=== PATIENT | male | born 1970 | race Caucasian/White ===

== ENCOUNTER 2022-04-17 09:46 | Emergency (ER) | payer MEDICARE, MEDICAID ==
[~2022-04-17] VITALS: Ht 170.2 cm; Wt 109.1 kg
[~2022-04-17 09:46] MED LIST: CYCL-1 PO
[2022-04-17 10:19] VITALS: BP 166/110
[2022-04-17] MEDS ORDERED: ONDA4TAB12 PO (11:21)
[2022-04-17] MEDS ORDERED: THIA50TA10 PO (11:21)
[2022-04-17] MEDS ORDERED: MULT-1074 PO (11:21)
[2022-04-17] MEDS ORDERED: ATI1T PO (11:21)
== END 2022-04-17 11:42 | disposition home or self-care (01) ==
LOC: ER 09:46
DX: F10.129 Alcohol abuse with intoxication, unspecified (principal); Z00.8 Encounter for other general examination; G89.29 Other chronic pain; M54.9 Dorsalgia, unspecified; Z91.018 Allergy to other foods; Z79.899 Other long term (current) drug therapy; Z88.6 Allergy status to analgesic agent; Y90.9 Presence of alcohol in blood, level not specified
CPT/HCPCS: 99283

== ENCOUNTER 2022-06-11 10:16 | Emergency (ER) | payer MEDICARE, MEDICAID ==
[~2022-06-11] VITALS: Ht 170.2 cm; Wt 104.5 kg
[~2022-06-11 10:16] MED LIST changes: +ATI1T PO; +MULT-1074 PO; +ONDA4TAB12 PO; +THIA50TA10 PO
[2022-06-11 10:51] VITALS: BP 158/96
[2022-06-11] MEDS ORDERED: GABA-530 PO (13:53)
[2022-06-11] MEDS ORDERED: ONDA4TAB12 PO (13:53)
[2022-06-11] MEDS ORDERED: LORA-269 PO (13:53)
== END 2022-06-11 14:03 | disposition home or self-care (01) ==
LOC: ER 10:17
DX: F10.239 Alcohol dependence with withdrawal, unspecified (principal); G89.29 Other chronic pain; Z98.890 Other specified postprocedural states; Z91.018 Allergy to other foods; Z88.8 Allergy status to other drugs, medicaments and biological substances; Z79.899 Other long term (current) drug therapy; Y90.9 Presence of alcohol in blood, level not specified
CPT/HCPCS: 99283

== ENCOUNTER 2022-08-12 09:41 | Emergency (ER) | payer MEDICARE, MEDICAID ==
[~2022-08-12] VITALS: Ht 172.7 cm; Wt 109.1 kg
[~2022-08-12 09:41] MED LIST changes: +GABA-530 PO; +LORA-269 PO
[2022-08-12 09:48] VITALS: BP 147/89
[2022-08-12] MEDS ORDERED: ibuprofen tablet 400 MG TABLET PO ONE (11:00)
== END 2022-08-12 11:30 | disposition home or self-care (01) ==
LOC: ER 09:42
DX: M25.551 Pain in right hip (principal); G89.29 Other chronic pain; M54.9 Dorsalgia, unspecified; Z87.81 Personal history of (healed) traumatic fracture; Z91.010 Allergy to peanuts; Z88.6 Allergy status to analgesic agent; Z79.899 Other long term (current) drug therapy; Z79.1 Long term (current) use of non-steroidal anti-inflammatories (NSAID); Y93.89 Activity, other specified; Y92.89 Other specified places as the place of occurrence of the external cause; Y99.8 Other external cause status
CPT/HCPCS: 73502; 99283

== ENCOUNTER 2022-11-27 09:27 | Emergency (ER) | payer MEDICARE, MEDICAID ==
[~2022-11-27] VITALS: Ht 172.7 cm; Wt 103.4 kg
[2022-11-27 09:40] VITALS: BP 164/96
--- NOTE | 2022-11-27 09:40 | NUR ---
LUIS FELIPE IN TRIAGE FOR MED SCREENING
[2022-11-27] MEDS ORDERED: GABA300C PO (09:50)
[2022-11-27] MEDS ORDERED: LORA-269 PO (09:50)
[2022-11-27] MEDS ORDERED: ONDA4TAB12 PO (09:50)
== END 2022-11-27 10:21 | disposition home or self-care (01) ==
LOC: ER 09:27
DX: F10.10 Alcohol abuse, uncomplicated (principal); I10 Essential (primary) hypertension; J44.9 Chronic obstructive pulmonary disease, unspecified; G89.29 Other chronic pain; F17.200 Nicotine dependence, unspecified, uncomplicated; F15.10 Other stimulant abuse, uncomplicated; Z88.6 Allergy status to analgesic agent; Z79.899 Other long term (current) drug therapy; Z88.8 Allergy status to other drugs, medicaments and biological substances; Y90.9 Presence of alcohol in blood, level not specified
CPT/HCPCS: 99283

== ENCOUNTER 2023-10-06 10:46 | Emergency (ER) | payer MEDICARE, MEDICAID ==
[~2023-10-06] VITALS: Ht 172.7 cm; Wt 97.6 kg
[~2023-10-06 10:46] MED LIST changes: +CHLO25CA10 PO; +GABA300C PO; +ONDA8TAB13 PO
[2023-10-06 11:17] VITALS: BP 142/91
[2023-10-06] MEDS: chlordiazePOXIDE 25mg capsule PO ONE (13:13)
[2023-10-06] MEDS ORDERED: CHLO25CA10 PO (14:13)
[2023-10-06 14:25] VITALS: PULSE 75; RESP 15; TEMP 97.7; O2SAT 98
== END 2023-10-06 14:27 | disposition home or self-care (01) ==
LOC: ER 10:47
DX: F10.239 Alcohol dependence with withdrawal, unspecified (principal); Z88.8 Allergy status to other drugs, medicaments and biological substances; Z91.018 Allergy to other foods; I10 Essential (primary) hypertension; J44.9 Chronic obstructive pulmonary disease, unspecified; G89.29 Other chronic pain; M54.9 Dorsalgia, unspecified; F15.90 Other stimulant use, unspecified, uncomplicated
CPT/HCPCS: 99283

== ENCOUNTER 2023-10-21 12:43 | Outpatient (CLI) | payer MEDICARE, MEDICAID | END 2023-10-21 23:59 | disposition home or self-care (01) | LOC: RAD 12:43 | PROVIDERS: ATTEND Physician Assistant | DX: I44.4 Left anterior fascicular block (principal); F11.20 Opioid dependence, uncomplicated; R94.31 Abnormal electrocardiogram [ECG] [EKG] | CPT/HCPCS: 93005 ==

== ENCOUNTER 2024-03-10 04:27 | Inpatient (IN) | payer MEDICARE, MEDICAID ==
[~2024-03-10] VITALS: Ht 170.2 cm; Wt 102.3 kg
[~2024-03-10 04:27] MED LIST changes: +ONDA-243 PO; +ONDA-245 PO; -ONDA4TAB12 PO; -ONDA8TAB13 PO
[2024-03-10] MEDS: LORazepam 2 mg/ml vial IV ONE (04:58)
[2024-03-10 05:18] LABS: BASOPHILS % (AUTO) 0.3 % (0-1); EOSINOPHILS % (AUTO) 0.5 % (0-6); HEMATOCRIT 39.6 % (42.0-52.0); HEMOGLOBIN 13.2 g/dl (14.0-17.9); LYMPHOCYTES # (AUTO) 0.8 X10'3 (1.1-4.8); LYMPHOCYTES % (AUTO) 12.3 % (21-51); MEAN CORPUSCULAR HEMOGLOBIN 30.4 PG (27.0-31.0); MEAN CORPUSCULAR HGB CONC 33.4 g/dL (33.0-36.5); MEAN PLATELET VOLUME 7.5 FL (7.4-10.4); MONOCYTES # (AUTO) 0.4 X10'3 (0-0.9); MONOCYTES % (AUTO) 6.6 % (2-12); NEUTROPHILS # (AUTO) 5.2 X10'3 (1.8-7.7); NEUTROPHILS % (AUTO) 80.3 % (42-75); PLATELET COUNT 130 X10'3 (140-440); RED BLOOD COUNT 4.35 X10'6 (4.70-6.10); RED CELL DISTRIBUTION WIDTH 14.2 % (11.5-14.5); WHITE BLOOD COUNT 6.5 X10'3 (4.5-11.0)
[2024-03-10 05:28] LABS: ALANINE AMINOTRANSFERASE 87 U/L (12-78); ALBUMIN 2.7 G/DL (3.4-5.0); ALBUMIN/GLOBULIN RATIO 0.7 (1.1-1.5); ALKALINE PHOSPHATASE 438 IU/L (46-116); ANION GAP 9 (8-16); ASPARTATE AMINO TRANSFERASE 102 U/L (10-37); BILIRUBIN,TOTAL 0.6 MG/DL (0.1-1.0); BLOOD UREA NITROGEN 8 MG/DL (7-18); BUN/CREATININE RATIO 15.1 (10.0-20.0); CALCIUM 7.9 MG/DL (8.5-10.1); CHLORIDE 99 MMOL/L (99-107); CREATININE 0.53 MG/DL (0.60-1.10); GLUCOSE 93 MG/DL (70-104); POTASSIUM 3.2 MMOL/L (3.5-5.1); SODIUM 139 MMOL/L (135-145); TOTAL CARBON DIOXIDE 31.4 MMOL/L (24-32); TOTAL PROTEIN 6.5 G/DL (6.4-8.2); eCRCL 152 ML/MIN; eGFR > 90 ML/MIN
[2024-03-10 05:36] LABS: PRO BRAIN NATRIURETIC PEPTIDE 400 PG/ML (0-125)
[2024-03-10] MEDS ORDERED: LORazepam 2 mg/ml vial IV ONE (06:05)
[2024-03-10 06:07] LABS: ETHANOL 44 MG/DL (<10)
[2024-03-10] MEDS: normal saline 1000ml 1,000 ML IV ONE (06:09)
[2024-03-10] MEDS ORDERED: METHADONE HCL 10MG/1 ML 1mL ORAL SYRINGE PO ONE (06:10)
[2024-03-10 06:42] LABS: MAGNESIUM 1.8 MG/DL (1.5-2.4)
[2024-03-10] MEDS: methadone 5mg tablet PO ONE (06:47)
[2024-03-10] MEDS: LORazepam 1 MG tablet PO ONE (08:50)
[2024-03-10] MEDS ORDERED: METH-603 PO (09:15)
[2024-03-10] MEDS ORDERED: potassium Cl 40MEQ/1/2NS 520ml 520 ML IV PRN (09:45)
[2024-03-10] MEDS ORDERED: magnesium sulf-water 4G/100mL 100 ML IV PRN (09:45)
[2024-03-10] MEDS ORDERED: HYDROcodone/acetaminophen 5mg/325mg tablet PO PRN (09:45)
[2024-03-10] MEDS ORDERED: haloperidol 5mg tablet PO PRN (09:45)
[2024-03-10] MEDS ORDERED: HYDROcodone/acetaminophen 10/325mg tab PO PRN (09:45)
[2024-03-10] MEDS ORDERED: magnesium sulf-water 2g/50mL 50 ML IV PRN (09:45)
[2024-03-10] MEDS ORDERED: acetaminophen 325mg tablet PO PRN (09:45)
[2024-03-10] MEDS ORDERED: ondansetron/PF 4mg/2ml inj IV PRN (09:45)
[2024-03-10] MEDS ORDERED: magnesium hydroxide 30ml (MOM) UD suspension PO PRN (09:45)
[2024-03-10] MEDS ORDERED: potassium Cl 20 mEq SR tablet PO PRN (09:45)
[2024-03-10] MEDS ORDERED: mag hydrox/Alum hydrox/simeth 30ml oral suspension PO PRN (09:45)
[2024-03-10 09:48] LABS: URINE AMPHETAMINE SCREEN NEGATIVE (Neg); URINE BARBITUATE SCREEN NEGATIVE (Neg); URINE BENZODIAZEPINES SCREEN NEGATIVE (Neg); URINE CANNABINOID SCREEN NEGATIVE (Neg); URINE COCAINE SCREEN NEGATIVE (Neg); URINE METHADONE SCREEN POSITIVE (Neg); URINE OPIATE SCREEN NEGATIVE (Neg); URINE PHENCYCLIDINE SCREEN NEGATIVE (Neg)
[2024-03-10] MEDS: folic acid 1mg tablet PO SCH (10:19)
[2024-03-10] MEDS: normal saline 1000ml 1,000 ML IV SCH ×2 (10:40→20:56)
[2024-03-10] MEDS: thiamine 100mg/ml 2ml inj. IV SCH (12:59)
[2024-03-10] MEDS ORDERED: hydrALAZINE 20mg/ml inj. IV PRN (14:55)
[2024-03-10] MEDS ORDERED: ipratropium/albuterol 3ml nebule NEB PRN (15:05)
[2024-03-10] MEDS: PERFLUTREN PROTEIN-A MICROSPHR (Optison) 0.22 MG/ML 3ML VIAL IV ONE (15:07)
[2024-03-10 16:32] VITALS: PULSE 74; RESP 18; O2SAT 96
[2024-03-10] MEDS: LORazepam 2 mg/ml vial IV PRN (18:40)
[2024-03-10 19:54] VITALS: PULSE 77; RESP 18; O2SAT 95
[2024-03-10] MEDS: docusate sod 100mg capsule PO SCH (20:00)
[2024-03-10 20:16] LABS: ALANINE AMINOTRANSFERASE 69 U/L (12-78); ALBUMIN 2.4 G/DL (3.4-5.0); ALBUMIN/GLOBULIN RATIO 0.6 (1.1-1.5); ALKALINE PHOSPHATASE 391 IU/L (46-116); ANION GAP 4 (8-16); ASPARTATE AMINO TRANSFERASE 60 U/L (10-37); BILIRUBIN,TOTAL 0.7 MG/DL (0.1-1.0); BLOOD UREA NITROGEN 8 MG/DL (7-18); BUN/CREATININE RATIO 16.3 (10.0-20.0); CALCIUM 7.8 MG/DL (8.5-10.1); CHLORIDE 102 MMOL/L (99-107); CREATININE 0.49 MG/DL (0.60-1.10); GLUCOSE 96 MG/DL (70-104); POTASSIUM 3.4 MMOL/L (3.5-5.1); SODIUM 138 MMOL/L (135-145); TOTAL CARBON DIOXIDE 32.2 MMOL/L (24-32); TOTAL PROTEIN 6.2 G/DL (6.4-8.2); eCRCL 165 ML/MIN; eGFR > 90 ML/MIN
[2024-03-10] MEDS: potassium Cl 20 mEq SR tablet PO PRN (20:56)
[2024-03-10] MEDS: heparin, porcine 5000 units/ml vial SQ SCH (20:58)
[2024-03-10] MEDS: K and/or MAG REPLACEMENT MC SCH (20:58)
[2024-03-10] MEDS: dextrose 50%-water 50ml dispensing syringe IV ONE ×2 (21:31)
[2024-03-11] VITALS (8 sets, daily range): BP systolic 121–155; BP diastolic 82–91; PULSE 59–99; RESP 15–20; TEMP 97.2–98.7; O2SAT 92–98
[2024-03-11] MEDS: dextrose 5%-normal saline 1,000 ML IV SCH (01:43)
[2024-03-11 06:35] LABS: BASOPHILS % (AUTO) 0.4 % (0-1); EOSINOPHILS # (AUTO) 0.1 X10'3 (0-0.9); EOSINOPHILS % (AUTO) 1.3 % (0-6); HEMATOCRIT 35.3 % (42.0-52.0); HEMOGLOBIN 11.7 g/dl (14.0-17.9); LYMPHOCYTES # (AUTO) 0.9 X10'3 (1.1-4.8); MEAN CORPUSCULAR HEMOGLOBIN 30.8 PG (27.0-31.0); MEAN CORPUSCULAR HGB CONC 33.2 g/dL (33.0-36.5); MEAN CORPUSCULAR VOLUME 92.8 FL (78-98); MEAN PLATELET VOLUME 7.7 FL (7.4-10.4); MONOCYTES # (AUTO) 0.5 X10'3 (0-0.9); MONOCYTES % (AUTO) 8.3 % (2-12); NEUTROPHILS # (AUTO) 4.1 X10'3 (1.8-7.7); PLATELET COUNT 110 X10'3 (140-440); RED BLOOD COUNT 3.81 X10'6 (4.70-6.10); RED CELL DISTRIBUTION WIDTH 13.9 % (11.5-14.5); WHITE BLOOD COUNT 5.6 X10'3 (4.5-11.0)
[2024-03-11 06:53] LABS: ALANINE AMINOTRANSFERASE 59 U/L (12-78); ALBUMIN 2.1 G/DL (3.4-5.0); ALBUMIN/GLOBULIN RATIO 0.6 (1.1-1.5); ALKALINE PHOSPHATASE 338 IU/L (46-116); ANION GAP 3 (8-16); ASPARTATE AMINO TRANSFERASE 50 U/L (10-37); BILIRUBIN,TOTAL 0.6 MG/DL (0.1-1.0); BLOOD UREA NITROGEN 8 MG/DL (7-18); BUN/CREATININE RATIO 15.7 (10.0-20.0); CALCIUM 7.7 MG/DL (8.5-10.1); CHLORIDE 105 MMOL/L (99-107); CREATININE 0.51 MG/DL (0.60-1.10); GLUCOSE 152 MG/DL (70-104); LIPASE 17 U/L (16-77); POTASSIUM 3.4 MMOL/L (3.5-5.1); SODIUM 139 MMOL/L (135-145); TOTAL CARBON DIOXIDE 30.9 MMOL/L (24-32); TOTAL PROTEIN 5.4 G/DL (6.4-8.2); eCRCL 158 ML/MIN; eGFR > 90 ML/MIN
[2024-03-11 07:15] LABS: PROTHROMBIN TIME 10.2 SECONDS (9.0-12.0)
[2024-03-11] MEDS: multivitamins, therapeutics tablet PO SCH (07:47)
[2024-03-11] MEDS: normal saline 1000ml 1,000 ML IV SCH (09:05)
[2024-03-11] MEDS: methadone 10mg tablet PO SCH (15:18)
[2024-03-12] MEDS ORDERED: LORazepam 2 mg/ml vial IV PRN (09:45)
[2024-03-14] MEDS ORDERED: LORazepam 2 mg/ml vial IV PRN (09:45)
== END 2024-03-11 21:10 | disposition left against medical advice (07) | DRG 641 ==
LOC: ER 04:27 → ED HOLD 09:53 → PCU 3S 03-11 00:56
PROVIDERS: ADMIT Nurse Practitioner Family; ATTEND Nurse Practitioner Family
DX: E87.6 Hypokalemia (principal); I69.351 Hemiplegia and hemiparesis following cerebral infarction affecting right dominant side; F10.239 Alcohol dependence with withdrawal, unspecified; J44.9 Chronic obstructive pulmonary disease, unspecified; I10 Essential (primary) hypertension; F41.9 Anxiety disorder, unspecified; Z53.21 Procedure and treatment not carried out due to patient leaving prior to being seen by health care provider; F19.10 Other psychoactive substance abuse, uncomplicated; E88.09 Other disorders of plasma-protein metabolism, not elsewhere classified; D64.9 Anemia, unspecified; F15.90 Other stimulant use, unspecified, uncomplicated; G89.29 Other chronic pain; M54.9 Dorsalgia, unspecified; Z88.5 Allergy status to narcotic agent; Z88.8 Allergy status to other drugs, medicaments and biological substances; Z91.018 Allergy to other foods; Z79.899 Other long term (current) drug therapy
CPT/HCPCS: 36415; 71045; 80053; 80305; 80320; 82948; 83690; 83735; 83880; 84484; 85025; 85610; 87081; 93005; 93306; 94760; 96374; 99285; A4620; A6258; G0378; J1644; J2060; J3411; J3490; J7030; J7042; J7070; J7121

== ENCOUNTER 2024-03-22 12:50 | Emergency (ER) | payer MEDICARE, MEDICAID ==
[~2024-03-22] VITALS: Ht 170.2 cm; Wt 96.4 kg
[~2024-03-22 12:50] MED LIST changes: +METH-603 PO
[2024-03-22 13:04] VITALS: BP 136/69; PULSE 91; RESP 18; TEMP 97.3; O2SAT 98
== END 2024-03-22 14:48 | disposition home or self-care (01) ==
LOC: ER 12:51
DX: F10.90 Alcohol use, unspecified, uncomplicated (principal); I10 Essential (primary) hypertension; J44.9 Chronic obstructive pulmonary disease, unspecified; G89.29 Other chronic pain; F15.90 Other stimulant use, unspecified, uncomplicated; Z88.8 Allergy status to other drugs, medicaments and biological substances; Z91.018 Allergy to other foods; Z79.899 Other long term (current) drug therapy
CPT/HCPCS: 99281; 99282

== ENCOUNTER 2024-06-22 10:14 | Emergency (ER) | payer MEDICARE, MEDICAID ==
[~2024-06-22] VITALS: Ht 170.2 cm; Wt 92.1 kg
[~2024-06-22 10:14] MED LIST changes: -ATI1T PO; -CHLO25CA10 PO; -CYCL-1 PO; +FOLI1TAB27 PO; -GABA-530 PO; -GABA300C PO; -LORA-269 PO; -METH-603 PO; -MULT-1074 PO; -ONDA-243 PO; -ONDA-245 PO; -THIA50TA10 PO; +thiamine tablet PO
[2024-06-22 10:49] VITALS: BP 133/88; PULSE 93; RESP 18; TEMP 97.8; O2SAT 98
[2024-06-22] MEDS ORDERED: FOLI0.4T6 PO (12:30)
[2024-06-22] MEDS ORDERED: CHLO25CA10 PO (12:30)
[2024-06-22] MEDS ORDERED: THIA50TA10 PO (12:30)
== END 2024-06-22 12:43 | disposition home or self-care (01) ==
LOC: ER 10:15
DX: F10.129 Alcohol abuse with intoxication, unspecified (principal); I10 Essential (primary) hypertension; J44.9 Chronic obstructive pulmonary disease, unspecified; G89.29 Other chronic pain; M54.9 Dorsalgia, unspecified; F15.90 Other stimulant use, unspecified, uncomplicated; Z88.8 Allergy status to other drugs, medicaments and biological substances; Z91.018 Allergy to other foods; Z79.899 Other long term (current) drug therapy; Z98.890 Other specified postprocedural states
CPT/HCPCS: 99283

== ENCOUNTER 2024-09-17 17:12 | Emergency (ER) | payer MEDICARE, MEDICAID ==
[~2024-09-17] VITALS: Ht 170.2 cm; Wt 83.6 kg
[~2024-09-17 17:12] MED LIST changes: +CHLO25CA10 PO; +THIA50TA10 PO
--- NOTE | 2024-09-17 17:22 | Physician Documentation ---
History of Present Illness ~ Chief Complaint: Overdose Stated Complaint: OD Time Seen by MD: 17:15 Primary Medical Doctor: DR. MEMBRENO HPI 54-year-old male presents via EMS for what was initially a suspected seizure however upon arrival patient was obtunded EMS administered intranasally two 1 mg doses of Narcan with a positive effect. Who presents to the ED alert oriented and ambulatory Day of Ingestion: Sep 17, 2024 Medication Reconciliation Allergies: Coded Allergies: ketorolac tromethamine (Unverified Allergy, Mild, HEADACHE, 07/12/24) pineapple (Unverified Allergy, Mild, HEADACHE, 07/12/24) Scheduled Folic Acid* (Folic Acid*), 1 MG PO DAILY Thiamine HCl (Vitamin B-1), 2 TAB PO DAILY [thiamine tablet], 200 MG PO DAILY Scheduled PRN Chlordiazepoxide Hcl (Librium), 2 CAP PO Q4H PRN for anxiety Chlordiazepoxide Hcl (Librium), 25 MG PO BID PRN for alcohol withdrawal Past Medical History Past Medical History: Hypertension, COPD, Chronic Back Pain, Extremity Fracture Past Surgical History: orthopedic surgeries Patient History: FH: alcoholism Maternal Grandfather FH: congestive heart failure FATHER Paternal Grandmother Alcohol Use: Alcoholic Drug Use: methamphetamine Lives In: Home Occupation: employed Review of Systems All Other Systems at this time: Reviewed and Negative ROS As stated above in the HPI, otherwise all systems are reviewed and negative. Physical Exam Physical Exam General: Alert, no apparent distress. HEENT: PERRL, EOMI, no injection, moist mucous membranes. Respiratory: Lungs clear, no respiratory distress. Chest: No accessory muscle use. Cardiovascular: Regular rate and rhythm, no murmurs. Neurologic: Oriented x4. Psychiatric: Normal mood and affect. Skin: Normal color, warm and dry. No edema, no ecchymosis. Progress Results/Orders Results/Orders Orders - ASHISH ARTEAGA [employer] Monitor (09/17/24 17:23) Saline Lock (09/17/24 17:23) Oxygen (09/17/24 17:23) Completed Orders - ASHISH ARTEAGA [employer] Cbc/Diff (09/17/24 17:23) PBNP (09/17/24 17:23) Electrocardiogram (09/17/24 17:23) CMP (09/17/24 17:23) Hs Troponin I W Calculations (09/17/24 17:23) Normal Saline 1000ml (Sodium Chloride 10 (09/17/24 17:50) Naloxone 2mg/2ml Inj (Narcan 2mg/2ml Inj (09/17/24 19:27) Medications Received in ER Medications (Trade) Dose Ordered Sig/Dequan Route PRN Reason Start Time Stop Time Status Last Admin Dose Admin (sodium chloride 1000ml IV soln) 2,000 ml ONCE ONCE IVB 09/17/24 17:50 09/17/24 17:51 DC 09/17/24 18:05 2,000 ML (Narcan 2mg/2ml inj) 2 mg ONCE STAT IV 09/17/24 19:27 09/17/24 19:28 DC 09/17/24 19:38 2 MG Vital Signs 09/17/24 09/17/24 09/17/24 09/17/24 17:13 17:18 18:05 18:24 Temp 98.4 Pulse 79 59 Resp 17 17 17 B/P (MAP) 142/82 142/82 (102) Pulse Ox 99 95 99 O2 Delivery Room Air* O2 Flow Rate 0 0 0 FiO2 21 09/17/24 19:06 Pulse 54 Resp 16 B/P (MAP) 113/68 (83) Pulse Ox 93 Laboratory Tests Test 09/17/24 17:41 White Blood Count 7.1 Red Blood Count 4.18 L Hemoglobin 12.4 L Hematocrit 37.7 L Mean Corpuscular Volume 90.2 Mean Corpuscular Hemoglobin 29.6 Mean Corpuscular Hemoglobin Concent 32.8 L Red Cell Distribution Width 15.7 H Platelet Count 230 Mean Platelet Volume 7.9 Neutrophils (%) (Auto) 64.7 Lymphocytes (%) (Auto) 25.3 Monocytes (%) (Auto) 6.8 Eosinophils (%) (Auto) 2.3 Basophils (%) (Auto) 0.9 Neutrophils # (Auto) 4.6 Lymphocytes # (Auto) 1.8 Monocytes # (Auto) 0.5 Eosinophils # (Auto) 0.2 Basophils # (Auto) 0.1 CBC Comment Sodium Level 143 Potassium Level 3.9 Chloride Level 107 Carbon Dioxide Level 29.5 Anion Gap 7 L Blood Urea Nitrogen 17 Creatinine 0.98 Estimated GFR/1.73 m2 80 BUN/Creatinine Ratio 17.3 Glucose Level 56 L Calcium Level 8.5 Total Bilirubin 0.4 Aspartate Amino Transf (AST/SGOT) 22 Alanine Aminotransferase (ALT/SGPT) 21 Alkaline Phosphatase 113 Troponin I High Sensitivity 5 Pro-B-Type Natriuretic Peptide 55 Total Protein 6.4 Albumin 3.6 Globulin 2.8 Albumin/Globulin Ratio 1.3 Chemistry Comments Medical Decision Making Findings I spoke at length with the patient on what led to his presentation to the ED today. He denied using any fentanyl however he did state he used a lorazepam and methadone because he was feeling anxious. I discussed with him with a I am just going to evaluate his laboratory values and EKG for any concerning signs and then discharge as long as everything looks good. He verbalized understanding and was in agreement. ED nurse notified me that patient appeared more somnolent than when he 1st arrived. Upon inspection he did appeared to be nodding off in his bed. 2 mg of Narcan was infused with a positive effect. Minutes later, patient was found bedside because he had gotten up to go use the restroom and fallen. Behaving per his baseline. Patient also acknowledges that he requires a hip replacement and normally uses a cane Differential Dx:Considerations: Include: Alcohol abuse, Anxiety, Bipolar disorder, Conversion disorder, Delirium, Depression, Drug Overdose-Accidental, Drug Overdose-Intentional, Encephalopathy, Hallucinations, Homicidal, Liver failure, Panic disorder, Personality disorder, Renal failure, Respiratory failure, Schizophrenia, Substance abuse, Suicidal attempt, Suidical gesture, O ther Departure Disposition: 01 HOME / SELF CARE / HOMELESS Impression: Primary Impression: Poisoning by opiate or related narcotic Condition: Improved Discharge Instructions: Accidental Drug Poisoning, Adult, Overdose, Adult Referrals: NO PRIMARY CARE PROVIDER (PCP) Signature Scribe Signature: l Attestation: The note accurately reflects work and decisions made by me.Ashish Mccoy NP 09/17/24 20:03 ASHISH ARTEAGA NP Sep 17, 2024 17:22
--- NOTE | 2024-09-17 17:36 | ELECTROCARDIOGRAPH REPORT ---
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 Ben Johnson Measurements Intervals [place] Rate: 61 P: 18 [place]: 162 QRS: -70 QRSD: 105 T: 29 QT: 465 QTc: 469 Interpretive Statements Sinus rhythm Left anterior fascicular block Abnormal R-wave progression, early transition Electronically Signed On 09-20-2024 19:03:[address] Ben Johnson Please click the below link to view image of tracing.
[2024-09-17 18:01] LABS: BASOPHILS # (AUTO) 0.1 X10'3 (0-0.2); BASOPHILS % (AUTO) 0.9 % (0-1); EOSINOPHILS # (AUTO) 0.2 X10'3 (0-0.9); EOSINOPHILS % (AUTO) 2.3 % (0-6); HEMATOCRIT 37.7 % (42.0-52.0); HEMOGLOBIN 12.4 g/dl (14.0-17.9); LYMPHOCYTES # (AUTO) 1.8 X10'3 (1.1-4.8); LYMPHOCYTES % (AUTO) 25.3 % (21-51); MEAN CORPUSCULAR HEMOGLOBIN 29.6 PG (27.0-31.0); MEAN CORPUSCULAR HGB CONC 32.8 g/dL (33.0-36.5); MEAN CORPUSCULAR VOLUME 90.2 FL (78-98); MEAN PLATELET VOLUME 7.9 FL (7.4-10.4); MONOCYTES # (AUTO) 0.5 X10'3 (0-0.9); MONOCYTES % (AUTO) 6.8 % (2-12); NEUTROPHILS # (AUTO) 4.6 X10'3 (1.8-7.7); NEUTROPHILS % (AUTO) 64.7 % (42-75); PLATELET COUNT 230 X10'3 (140-440); RED BLOOD COUNT 4.18 X10'6 (4.70-6.10); RED CELL DISTRIBUTION WIDTH 15.7 % (11.5-14.5); WHITE BLOOD COUNT 7.1 X10'3 (4.5-11.0)
[2024-09-17] MEDS: normal saline 1000ML IV soln IVB ONE (18:05)
[2024-09-17 18:22] LABS: ALBUMIN 3.6 G/DL (3.4-5.0); ALBUMIN/GLOBULIN RATIO 1.3 (1.1-1.5); ANION GAP 7 (8-16); ASPARTATE AMINO TRANSFERASE 22 U/L (10-37); BILIRUBIN,TOTAL 0.4 MG/DL (0.1-1.0); BLOOD UREA NITROGEN 17 MG/DL (7-18); BUN/CREATININE RATIO 17.3 (10.0-20.0); CALCIUM 8.5 MG/DL (8.5-10.1); CHLORIDE 107 MMOL/L (99-107); CREATININE 0.98 MG/DL (0.60-1.10); GLUCOSE 56 MG/DL (70-104); POTASSIUM 3.9 MMOL/L (3.5-5.1); SODIUM 143 MMOL/L (135-145); TOTAL CARBON DIOXIDE 29.5 MMOL/L (24-32); TOTAL PROTEIN 6.4 G/DL (6.4-8.2); eCRCL 82 ML/MIN; eGFR 80 ML/MIN
[2024-09-17 18:23] LABS: ALANINE AMINOTRANSFERASE 21 U/L (12-78); ALKALINE PHOSPHATASE 113 IU/L (46-116)
[2024-09-17 18:29] LABS: PRO BRAIN NATRIURETIC PEPTIDE 55 PG/ML (0-125)
[2024-09-17] MEDS: naloxone 2mg/2ml inj IV STA (19:38)
--- NOTE | 2024-09-17 20:57 | RADIOLOGY REPORT ---
EXAM: CT CT HEAD INDICATION: fall TECHNIQUE: CT of the head without intravenous contrast. Radiation Dose Information: CT Dose: CTDI volume is 62.99 mGy. Dose-length product is 1150.67 mGy*cm The dose indicators for CT are the volume Computed Tomography (CT) Dose Index (CTDIvol) and the Dose Length Product (DLP), and are measured in units of mGy and mGy-cm, respectively. These indicators are not patient dose, but values generated from the CT scanner acquisition factors. The report includes radiation exposure data for exposures received during this examination. COMPARISON: None FINDINGS: There is no evidence of acute intracranial hemorrhage, extra-axial collection, mass effect, midline s hift, herniation or hydrocephalus. The ventricles, sulci and cisterns are age appropriate. The mohan-white differentiation is intact. Patchy periventricular and subcortical white matter hypoattenuation is nonspecific but may be related to small vessel ischemic disease. The visualized paranasal sinuses and mastoid air cells are clear. The surrounding soft tissues and osseous structures are unremarkable. IMPRESSION: 1. Acute intracranial hemorrhage 2. CT findings of territorial ischemia. 3. No CT findings of displaced skull fracture. HS:Y
[2024-09-17 23:37] VITALS: BP 104/57; PULSE 62; RESP 16; TEMP 97.8; O2SAT 99
== END 2024-09-17 23:39 | disposition home or self-care (01) ==
LOC: ER 17:13
DX: T40.601A Poisoning by unspecified narcotics, accidental (unintentional), initial encounter (principal); R51.9 Headache, unspecified; I10 Essential (primary) hypertension; J44.9 Chronic obstructive pulmonary disease, unspecified; F15.90 Other stimulant use, unspecified, uncomplicated; F10.20 Alcohol dependence, uncomplicated; Y92.89 Other specified places as the place of occurrence of the external cause; Y90.9 Presence of alcohol in blood, level not specified
CPT/HCPCS: 36415; 70450; 80053; 83880; 84484; 85025; 93005; 96361; 96374; 99285; J2310; J7030

== ENCOUNTER 2024-10-21 08:02 | Inpatient (IN) | payer MEDICARE, MEDICAID ==
[~2024-10-21] VITALS: Ht 172.7 cm; Wt 85.3 kg
--- NOTE | 2024-10-21 08:34 | Physician Documentation ---
History of Present Illness ~ Chief Complaint: Overdose Stated Complaint: OD Time Seen by MD: 08:29 Primary Medical Doctor: DR. MEMBRENO Source: patient, family Mode of Arrival: EMS HPI 54-year-old male presenting for altered mental status. [place] with significant lethargy. EMS was reportedly going to give him Narcan when he woke up and told staff he did not want any. His fiancee is at bedside who reports that he has not used drugs in 2 months" Medication Reconciliation Allergies: Coded Allergies: ketorolac tromethamine (Unverified Allergy, Mild, HEADACHE, 07/12/24) pineapple (Unverified Allergy, Mild, HEADACHE, 07/12/24) Scheduled Folic Acid* (Folic Acid*), 1 MG PO DAILY Thiamine HCl (Vitamin B-1), 2 TAB PO DAILY [thiamine tablet], 200 MG PO DAILY Scheduled PRN Chlordiazepoxide Hcl (Librium), 2 CAP PO Q4H PRN for anxiety Chlordiazepoxide Hcl (Librium), 25 MG PO BID PRN for alcohol withdrawal Past Medical History Past Medical History: Hypertension, COPD, Chronic Back Pain, Extremity Fracture Past Surgical History: orthopedic surgeries Patient History: FH: alcoholism Maternal Grandfather FH: congestive heart failure FATHER Paternal Grandmother Alcohol Use: Alcoholic Drug Use: methamphetamine Lives In: Home Occupation: employed Physical Exam Vital Signs: RN Vital Signs have been reviewed: Yes, Temperature: 98.5, Source: Oral, Heart Rate: 49, Respiratory Rate: 10, Pulse Oximetry: 95, Weight: 81.820 Progress Progress Note Reassess patient at 9:38 a.m.. Nurse has just given him Narcan he is now awake saying do not touch me rocking back and forth in position moving all extremities. He is still unable to hold a conversation and give any history but certainly his neurologic exam has responded to naloxone. Given that he is still altered he will need further evaluation. There is no way he will hold still for CT scan or lab draw so I will give him some olanzapine 9:43 a.m. POC glucose returned 60, he still has no IV in his a difficult IV stick due to body habitus and inability to hold still. He is not safe to take p.o. While waiting for IV access we will give him some glucagon. 11:26 a.m. reassessed patient he is now completely alert and up walking to the bathroom he pulled out his IV 12:30 p.m. reassessed patient he is now somnolent again his blood pressure is now low and he is bradycardic. Symptoms all consistent with methadone overdose. 12:45 p.m. patient now awake following administration of 2nd naloxone. He says that he just took his regular methadone dose this morning at the clinic. He is still slurring his speech and fatigued 1:[address] Renner who agrees with management plan and graciously accept for admission Results/Orders Reviewed/noted all lab results: Yes Results/Orders Orders - WERO CHILDS MD Ct Head (10/21/24 08:55) * Blood Glucose Assessment * ACHS (10/21/24 12:15) Chest,Single View (10/21/24 12:15) Page Hospitalist (10/21/24 12:43) Fill Out Med Reconciliation (10/21/24 12:43) Completed Orders - WERO CHILDS MD Ct Head (10/21/24 08:55) Cbc/Diff (10/21/24 08:55) BMP (10/21/24 08:55) Ethanol (10/21/24 08:55) Naloxone 2mg/2ml Inj (Narcan 2mg/2ml Inj (10/21/24 08:57) Olanzapine Im (Zyprexa I.M. Im On (10/21/24 09:40) Glucagon, Human Recombinant (Glucagen In (10/21/24 09:45) Dextrose 5%-Lactated Ringers (Dextrose (10/21/24 09:55) Drug Screen, Urine (10/21/24 10:49) Ringers Solution, Lacted (Lactated Ringe (10/21/24 12:15) Urinalysis (10/21/24 12:15) Chest,Single View (10/21/24 12:15) Naloxone 0.4 Mg/Ml Inj (Narcan 0.4mg/Ml (10/21/24 12:15) Electrocardiogram (10/21/24 ) Troponin (Single) (10/21/24 12:15) Olanzapine Im (Zyprexa I.M. Im On (10/21/24 12:20) Medications Received in ER Medications (Trade) Dose Ordered Sig/Dequan Route PRN Reason Start Time Stop Time Status Last Admin Dose Admin (Narcan 2mg/2ml inj) 2 mg ONCE STAT IV 10/21/24 08:57 10/21/24 09:03 DC 10/21/24 09:14 2 MG (ZyPREXA I.M. IM ONLY) 5 mg ONCE ONCE IM 10/21/24 09:40 10/21/24 09:42 DC 10/21/24 09:55 5 MG Dextrose/Lactated Ringer's 1,000 ml @ 500 mls/hr Q2H ONCE IV 10/21/24 09:55 10/21/24 11:54 DC 10/21/24 09:59 500 MLS/HR Lactated Ringer's 1,000 ml @ 1,000 mls/hr ONCE ONCE IV 10/21/24 12:15 10/21/24 13:14 DC 10/21/24 12:48 1,000 MLS/HR (Narcan 0.4mg/ml inj) 0.4 mg ONCE ONCE IV 10/21/24 12:15 10/21/24 12:34 DC 10/21/24 12:39 0.4 MG Vital Signs 10/21/24 10/21/24 10/21/24 10/21/24 08:14 08:26 08:42 09:18 Temp 98.5 98.5 98.5 Pulse 49 53 50 Resp 12 10 8 17 B/P (MAP) 101/53 (69) 96/54 (68) Pulse Ox 95 94 100 O2 Flow Rate 2.0 2.0 10/21/24 10/21/24 10/21/24 10/21/24 10:02 10:51 11:57 12:39 Temp 98.5 98.5 98.5 Pulse 68 58 50 46 Resp 14 14 12 8 B/P (MAP) 106/61 (76) 140/65 (90) 93/55 (68) 101/62 Pulse Ox 98 99 97 97 O2 Flow Rate 2.0 2.0 2.0 10/21/24 13:27 Pulse 38 Resp 12 B/P (MAP) 119/70 (86) Pulse Ox 97 O2 Flow Rate 2.0 Laboratory Tests Test 10/21/24 09:42 10/21/24 10:05 10/21/24 10:45 10/21/24 10:48 Glucometer 60 L White Blood Count 6.9 Red Blood Count 4.40 L Hemoglobin 12.7 L Hematocrit 39.5 L Mean Corpuscular Volume 89.7 Mean Corpuscular Hemoglobin 28.8 Mean Corpuscular Hemoglobin Concent 32.1 L Red Cell Distribution Width 15.5 H Platelet Count 217 Mean Platelet Volume 7.9 Neutrophils (%) (Auto) 59.7 Lymphocytes (%) (Auto) 32.1 Monocytes (%) (Auto) 6.0 Eosinophils (%) (Auto) 1.5 Basophils (%) (Auto) 0.7 Neutrophils # (Auto) 4.1 Lymphocytes # (Auto) 2.2 Monocytes # (Auto) 0.4 Eosinophils # (Auto) 0.1 Basophils # (Auto) 0.0 CBC Comment Sodium Level 142 Potassium Level 4.0 Chloride Level 105 Carbon Dioxide Level 32.2 H Anion Gap 5 L Blood Urea Nitrogen 13 Creatinine 0.81 Estimated GFR/1.73 m2 > 90 BUN/Creatinine Ratio 16.0 Glucose Level 67 L Calcium Level 8.7 Troponin I High Sensitivity 4 Albumin 3.6 Chemistry Comments Ethyl Alcohol Level < 10 Urine Opiates Screen Negative Urine Methadone Screen Positive Urine Fentanyl Screen Negative Urine Barbiturates Screen Negative Urine Phencyclidine Screen Negative Urine Amphetamines Screen Negative Urine Benzodiazepines Screen Negative Urine Cocaine Screen Negative Urine Cannabinoids Screen Negative Drug Screen Comment Urine Specimen Description Voided Urine Color Yellow Urine Clarity Clear Urine pH 6.0 Urine Specific [place] 1.015 Urine Protein Negative Urine Glucose (UA) Negative Urine Ketones Negative Urine Occult Blood Negative Urine Nitrite Negative Urine Bilirubin Negative Urine Urobilinogen 0.2 Urine Leukocyte Esterase Negative Volume Urine Centrifuged 10 ml Urine Comment Test 10/21/24 12:05 Glucometer 100 EKG/XRAY/CT/US/VASC/MRI EKG : Additional Comment I independently interpreted EKG time 12:23 p.m. indication altered mental status sinus bradycardia rate 49 normal axis normal intervals no ST or T-wave abnormality Medical Decision Making Additional info obtained from: old records Additional Comment CVA, drug overdose accidental, encephalopathy hypoglycemia Departure Disposition: ADMITTED INPATIENT Admitted to Inpatient Unit: to hospitalist Impression: Primary Impression: Poisoning by opiate or related narcotic Additional Impression: Metabolic encephalopathy Referrals: NO PRIMARY CARE PROVIDER (PCP) Critical Care Note Total Time (mins): 30 Critical Care Note The very real possibility of a deterioration of this patient's condition required the highest level of my preparedness for sudden, emergent intervention. I provided critical care services, which included medication orders, frequent reevaluations of the patient's condition and response to treatment, ordering and reviewing test results, and discussing the case with various consultants. Excludes time spent performing separately billable procedures. The critical care time associated with the care of the patient was 30 minutes in the management of opiate overdose with bradycardia and hypotension requiring immediate interve ntion Signature Scribe Signature: na Attestation: WERO Lerma MD October 21, 2024 08:34
[2024-10-21] MEDS: naloxone 2mg/2ml inj IV STA ×2 (09:14→14:23)
[2024-10-21] MEDS: glucagon, human recombinant 1mg kit IM ONE (09:52)
[2024-10-21] MEDS: OLANZapine **IM** 10 mg inj. IM ONE ×3 (09:55→15:43)
[2024-10-21] MEDS: dextrose 5%-lactated ringers 1,000 ML IV ONE (09:59)
[2024-10-21 10:26] LABS: BASOPHILS % (AUTO) 0.7 % (0-1); EOSINOPHILS # (AUTO) 0.1 X10'3 (0-0.9); EOSINOPHILS % (AUTO) 1.5 % (0-6); HEMATOCRIT 39.5 % (42.0-52.0); HEMOGLOBIN 12.7 g/dl (14.0-17.9); LYMPHOCYTES # (AUTO) 2.2 X10'3 (1.1-4.8); LYMPHOCYTES % (AUTO) 32.1 % (21-51); MEAN CORPUSCULAR HEMOGLOBIN 28.8 PG (27.0-31.0); MEAN CORPUSCULAR HGB CONC 32.1 g/dL (33.0-36.5); MEAN CORPUSCULAR VOLUME 89.7 FL (78-98); MEAN PLATELET VOLUME 7.9 FL (7.4-10.4); MONOCYTES # (AUTO) 0.4 X10'3 (0-0.9); NEUTROPHILS # (AUTO) 4.1 X10'3 (1.8-7.7); NEUTROPHILS % (AUTO) 59.7 % (42-75); PLATELET COUNT 217 X10'3 (140-440); RED CELL DISTRIBUTION WIDTH 15.5 % (11.5-14.5); WHITE BLOOD COUNT 6.9 X10'3 (4.5-11.0)
[2024-10-21 10:33] LABS: ALBUMIN 3.6 G/DL (3.4-5.0); ANION GAP 5 (8-16); BLOOD UREA NITROGEN 13 MG/DL (7-18); CALCIUM 8.7 MG/DL (8.5-10.1); CHLORIDE 105 MMOL/L (99-107); CREATININE 0.81 MG/DL (0.60-1.10); GLUCOSE 67 MG/DL (70-104); SODIUM 142 MMOL/L (135-145); TOTAL CARBON DIOXIDE 32.2 MMOL/L (24-32); eCRCL 103 ML/MIN; eGFR > 90 ML/MIN
--- NOTE | 2024-10-21 10:44 | RADIOLOGY REPORT ---
EXAM: CT CT HEAD HISTORY: ams COMPARISON: CT CT HEAD on DOS: 09/17/24 TECHNIQUE: Axial images were obtained and reformatted in coronal and sagittal planes. All CT scans at this medical facility are performed using dose modulation techniques as appropriate to a performed e xam including the following: Automated exposure control was utilized; adjustment of the MA and/or KV according to patient size; and use of iterative reconstruction technique. CT Dose: CTDI volume is 62 mGy. Dose-length product is 1384 mGy*cm FINDINGS: Supratentorial Region: No evidence for large acute territorial ischemia. No intracranial hemorrhage is noted. Posterior Fossa: No acute abnormality. Brainstem: Unremarkable. Sellar/Suprasellar Region: Unremarkable. Ventricles, Cisterns, Sulci: Age-appropriate. Orbits: Unremarkable. Paranasal Sinuses: Unremarkable. Mastoid Air Cells: Unremarkable. Vasculature: Intracranial arterial calcified plaque formation noted. Bones/Soft Tissues: No acute abnormality. Other: None. IMPRESSION: 1. No acute intracranial process.
[2024-10-21 10:58] LABS: ETHANOL < 10 MG/DL (<10)
[2024-10-21 11:48] LABS: URINE AMPHETAMINE SCREEN NEGATIVE (Neg); URINE BARBITUATE SCREEN NEGATIVE (Neg); URINE BENZODIAZEPINES SCREEN NEGATIVE (Neg); URINE CANNABINOID SCREEN NEGATIVE (Neg); URINE COCAINE SCREEN NEGATIVE (Neg); URINE METHADONE SCREEN POSITIVE (Neg); URINE OPIATE SCREEN NEGATIVE (Neg); URINE PHENCYCLIDINE SCREEN NEGATIVE (Neg)
--- NOTE | 2024-10-21 12:27 | ELECTROCARDIOGRAPH REPORT ---
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 Ben Johnson Measurements Intervals [place] Rate: 49 P: 35 [place]: 165 QRS: -58 QRSD: 110 T: -16 QT: 524 QTc: 474 Interpretive Statements Sinus bradycardia Left anterior fascicular block Borderline T abnormalities, inferior leads Electronically Signed On 10-23-2024 11:02:[address] Ben Johnson Please click the below link to view image of tracing.
[2024-10-21 12:31] LABS: BILIRUBIN,URINE NEGATIVE (Neg); CLARITY,URINE CLEAR (Clear); COLOR,URINE YELLOW (Yellow); GLUCOSE, URINE NEGATIVE (Neg); KETONES,URINE NEGATIVE (Neg); LEUKOCYTE ESTERASE ,URINE NEGATIVE (Neg); NITRITES, URINE NEGATIVE (Neg); OCCULT BLOOD,URINE NEGATIVE (Neg); PROTEIN,URINE NEGATIVE (Neg); UROBILINOGEN,URINE 0.2 E.U/dL (0.2-1.0)
--- NOTE | 2024-10-21 12:38 | RADIOLOGY REPORT ---
EXAM: DI CHEST,SINGLE VIEW HISTORY: symptomatic COMPARISON: DI CHEST,SINGLE VIEW on DOS: 04/14/24, DI CHEST,SINGLE VIEW on DOS: 03/10/24, CHEST,SINGL E VIEW on DOS: 09/07/22 TECHNIQUE: Portable upright AP view of the chest was performed. FINDINGS: There is central interstitial prominence. No pneumothorax, consolidative infiltrates, or pulmonary ed [place]. The heart is borderline enlarged. There is thoracic degenerative disc disease. There is bilatera l acromioclavicular hypertrophy. IMPRESSION: Central interstitial prominence may be due to reactive airways disease or mild CHF. The lungs are ot herwise clear.
[2024-10-21 12:39] LABS: UA COLLECTION TYPE VOIDED
[2024-10-21] MEDS: naloxone 0.4 mg/ml inj IV ONE (12:39)
[2024-10-21] MEDS: ringers solution, lacted 1,000 ML IV ONE (12:48)
[2024-10-21] MEDS ORDERED: ondansetron 4mg rapidly disintigrating tab PO PRN (14:05)
[2024-10-21] MEDS ORDERED: magnesium Cl slow-release 64mg tablet PO PRN ×2 (14:05→17:15)
[2024-10-21] MEDS ORDERED: acetaminophen 325mg tablet PO PRN ×3 (14:05→17:15)
[2024-10-21] MEDS ORDERED: naloxone 0.4 mg/ml inj IV PRN ×2 (14:05→17:15)
[2024-10-21] MEDS ORDERED: ondansetron/PF 4mg/2ml inj IV PRN ×2 (14:05→17:15)
[2024-10-21] MEDS ORDERED: acetaminophen 650mg rectal suppository RC PRN (14:05)
[2024-10-21] MEDS ORDERED: magnesium sulf-water 4G/100mL 100 ML IV PRN ×2 (14:05→17:15)
[2024-10-21] MEDS ORDERED: potassium Cl 40MEQ/1/2NS 520ml 520 ML IV PRN ×2 (14:05→17:15)
[2024-10-21] MEDS ORDERED: diphenhydrAMINE 25mg capsule PO PRN (14:05)
[2024-10-21] MEDS ORDERED: mag hydrox/Alum hydrox/simeth 30ml oral suspension PO PRN ×2 (14:05→17:15)
[2024-10-21] MEDS ORDERED: potassium Cl 20 mEq SR tablet PO PRN ×4 (14:05→17:15)
[2024-10-21] MEDS ORDERED: magnesium hydroxide 30ml (MOM) UD suspension PO PRN ×2 (14:05→17:15)
[2024-10-21] MEDS ORDERED: bisacodyl 10mg suppository rectal RC PRN (14:05)
[2024-10-21] MEDS ORDERED: magnesium sulf-water 2g/50mL 50 ML IV PRN ×2 (14:05→17:15)
[2024-10-21] MEDS: dextrose 5%-normal saline 1,000 ML IV SCH (14:25)
[2024-10-21 14:51] LABS: HEMOGLOBIN A1C 5.4 % (4.5-6.2)
[2024-10-21] MEDS: diazepam inj 5 MG/ML inj. IV ONE ×2 (15:15→20:31)
[2024-10-21] MEDS: LORazepam 2 mg/ml vial IV ONE (15:43)
[2024-10-21 16:56] LABS: ALANINE AMINOTRANSFERASE 19 U/L (12-78); ALBUMIN 3.3 G/DL (3.4-5.0); ALBUMIN/GLOBULIN RATIO 1.1 (1.1-1.5); ALKALINE PHOSPHATASE 106 IU/L (46-116); ANION GAP 4 (8-16); ASPARTATE AMINO TRANSFERASE 18 U/L (10-37); BILIRUBIN,TOTAL 0.6 MG/DL (0.1-1.0); BLOOD UREA NITROGEN 10 MG/DL (7-18); BUN/CREATININE RATIO 14.3 (10.0-20.0); CALCIUM 8.6 MG/DL (8.5-10.1); CHLORIDE 110 MMOL/L (99-107); GLUCOSE 104 MG/DL (70-104); SODIUM 145 MMOL/L (135-145); TOTAL CARBON DIOXIDE 30.9 MMOL/L (24-32); TOTAL PROTEIN 6.2 G/DL (6.4-8.2); eCRCL 119 ML/MIN; eGFR > 90 ML/MIN
--- NOTE | 2024-10-21 17:25 | HISTORY AND PHYSICAL-Residence ---
History & Physical Providers to CC Resident Creating Document: RODRÍGUEZ BURCIAGA ELIZABETH ~ History of Present Illness Primary Medical Doctor: DR. MEMBRENO Reason for Admit\Complaint: OD, Obtundation History of Present Illness The patient is a 54-year-old male with a longstanding history of alcohol use disorder, who goes to methadone clinic brought to via EMS with altered level of consciousness after taking an unspecified amount of methadone.. He also has a history of DT and polysubstance use, including methamphetamine and fentanyl. This is his 4th ED visit this year for similar presentations, with previous admission on April 14, 2024, and September 17, 2024, both related to substance withdrawal and altered mental status. Upon arrival today, the patient was obtunded, and responded to naloxone. Post reversal, he became acutely agitated, requiring sedation with diazepam, and Ativan. He also received Zyprexa 5 mg, given twice. Today, he responded to 2 mg of naloxone followed by 0.4 mg, indicating possible recent opiate use despite denied. Despite reporting no recent methamphetamine use (claims abstinent for 45 days) and fentanyl use one year ago, his exam findings and positive response to naloxone suggests recent opioid exposure. His U-Tox is negative, nonetheless. He also claimed that he goes to ies clinic daily for methadone, but this requires verification. Allergies: Coded Allergies: ketorolac tromethamine (Unverified Allergy, Mild, HEADACHE, 10/23/24) pineapple (Unverified Allergy, Mild, HEADACHE, 10/23/24) Home Medications Home Medications Active Librium (Chlordiazepoxide Hcl) 25 Mg Capsule 25 Mg PO BID PRN Vitamin B-1 (Thiamine HCl) 50 Mg Tablet 2 Tab PO DAILY 30 Days Librium (Chlordiazepoxide Hcl) 25 Mg Capsule 2 Cap PO Q4H PRN 3 Days [thiamine tablet] 100 MG Tablet 200 Mg PO DAILY 30 Days Folic Acid* (Folic Acid) Y Tab 1 Mg PO DAILY 30 Days Past Medical History Past Medical History CVA with no chronic residual sequelae, alcohol use disorder, polysubstance use disorder Past Surgical History Surgical History Comment ORIF right hip in 2018, lumbar spine L4-L5 S1 surgeries Family History Family History: FH: alcoholism Maternal Grandfather FH: congestive heart failure FATHER Paternal Grandmother Past Social History Social History Comment Lives with his , goes to methadone clinic daily, claim quitting methamphetamine 45 days ago and fentanyl one year ago. He also claimed abstinence from alcohol for eight years. Alcohol Use: Alcoholic Drug Use: Methamphetamine Lives In: Home Occupation: employed ROS All Other Systems: Reviewed and Negative ROS As stated above in the HPI, otherwise all systems are reviewed and negative. Exam Vitals: Vital Signs Date Time Temp Pulse Resp B/P (MAP) Pulse Ox O2 Delivery O2 Flow Rate FiO2 10/21/24 17:01 98.5 60 10 112/68 (83) 98 2.0 General Appearance: Mildly confused, mildly agitated HEENT: pinpoint pupils Neck: Trachea midline. Supple, normal ROM. No JVD, bruit, lymphadenopathy or masses, or other lesions. Respiratory: Chest wall is symmetric and without deformity. No signs of respiratory distress. Equal breath sounds bilaterally. No wheeze, rub, Rales or crackles. Cardiac: RRR, no murmur, rub or gallop. Normal S1 and S2. GI: No tenderness. Abdomen symmetric, nondistended, soft, normal bowel sounds x4 quadrant normoactive. No guarding, no rebound or rigidity. No hepatosplenomegaly. No masses, no bruit, no flank pain bilaterally. Extremities: Normal ROM, no swelling, non-tender. Distal pulses full symmetrical, no clubbing, cyanosis, edema, capillary refill less than 2 seconds. Skin: Intact, dry, warm, no rashes or petechia. Neuro: Speech is clear, alert and oriented x4. No sensory or motor deficit, DTRs normal. Cranial nerves II to XII intact. Bilateral tremors noted Psych: Normal affect, good eye contact, no apparent hallucination, normal speech. Diagnostic Data Last Recorded Lab Results: 10/21/24 1005 10/21/24 1618 Advance Care Planning Advanced Care plannin - 30 Minutes Additional Plan History of polysubstance abuse History of methamphetamine abuse Claimed taking methadone Recurrent episodes of drowsiness respiratory depression - responds well to Narcan Received repeated boluses of Narcan for recurrent respiratory depression Narcan 0.2 mg every 20 minutes as needed Perfusing well with 2 L supplemental oxygen via nasal cannula; keep oxygen saturation between 90- 94% Monitor closely for hypoventilation or need for airway intervention Continuous telemetry, monitor for arrhythmia, QTC prolongation Continue IV hydration; D5/NS 125 ml/hr Substance use navigation consult requested Alcohol use disorder Alcohol-induced psychotic disorder Severe alcohol withdrawal symptoms: CIWA-Ar Score 24 Soft restrains, sitter in place Symptom-triggered regimen for CAT - Ativan 2 mg IV as needed for CIWA-Ar >10 (parameters included in the order). - Valium 10 mg IV every 6 hrs scheduled, transitioning to every 8 hrs scheduled tomorrow & subsequently every 12 hrs the day after. - Continue symptom triggered Ativan per CIWA protocol - Zyprexa 10 mg IM adjunctive therapy for agitation - Continue thiamine and folic acid IV - oil well services supervisor consulted History of CVA No chronic residual sequelae History of degenerative joint disease Status post ORIF right hip 2018 L4-L5 surgery Pain management Tobacco use disorder Vaping - nicotine patch DVT prophylaxis: Heparin Code status: Full code Rodríguez Burciaga Internal Medicine Resident Date of Service: October 21, 2024 Billing Provider: ERIC AMADOR MD Common Visit Codes: 45979-[id number] INP/OBS CARE (HIGH) RODRÍGUEZ BURCIAGA, RES October 21, 2024 17:25 ERIC AMADOR MD Oct 26, 2024 16:43
[2024-10-21 17:30] LABS: BILIRUBIN,URINE NEGATIVE (Neg); CLARITY,URINE CLEAR (Clear); COLOR,URINE YELLOW (Yellow); GLUCOSE, URINE NEGATIVE (Neg); KETONES,URINE NEGATIVE (Neg); LEUKOCYTE ESTERASE ,URINE NEGATIVE (Neg); NITRITES, URINE NEGATIVE (Neg); OCCULT BLOOD,URINE NEGATIVE (Neg); PH,URINE 7.5 (4.8-8.0); PROTEIN,URINE NEGATIVE (Neg); UROBILINOGEN,URINE 0.2 E.U/dL (0.2-1.0)
[2024-10-21 17:33] LABS: ABG BASE EXCESS 0.7 mmol/L (-2.0-3.0); ABG OXYGEN SATURATION 89.6 % (94.0-98.0); ABG PH (T) 7.425 (7.350-7.450); ABG PO2 (T) 59.6 mmHg (83.0-108.0); ALLEN'S TEST POSITIVE; FCOHb 0.3 % (0.5-1.5); FHHb 10.3 % (0.0-5.0); FMetHb 0.3 % (0.0-1.5); FO2Hb 89.1 % (94.0-98.0); MODE ROOM AIR; TOTAL HEMOGLOBIN 12.7 G/dl (13.5-17.5)
--- NOTE | 2024-10-21 17:35 | CONSULTATION REPORT ---
Consult Providers to CC ~ History of Present Illness Reason for Admit\Complaint: Altered level of consciousness History of Present Illness 54-year-old male who presented to the emergency department via EMS with altered level of consciousness after taking an unspecified amount of methadone. The patient has been a patient of a local methadone clinic for about two years. He was also notable for hypoglycemia with a serum glucose of 60. He responded to Narcan i.e. mentation would improve and he would get agitated. He has received diazepam, olanzapine and lorazepam to control his agitation with some success. He was started on D5 LR at 125 mL/hour. He is overall become calm without any agitation. He has not required anymore dosing with Narcan. He was able to give me most of his history. Allergies: Coded Allergies: ketorolac tromethamine (Unverified Allergy, Mild, HEADACHE, 07/12/24) pineapple (Unverified Allergy, Mild, HEADACHE, 07/12/24) Home Medications Home Medications Active Librium (Chlordiazepoxide Hcl) 25 Mg Capsule 25 Mg PO BID PRN Vitamin B-1 (Thiamine HCl) 50 Mg Tablet 2 Tab PO DAILY 30 Days Librium (Chlordiazepoxide Hcl) 25 Mg Capsule 2 Cap PO Q4H PRN 3 Days [thiamine tablet] 100 MG Tablet 200 Mg PO DAILY 30 Days Folic Acid* (Folic Acid) Y Tab 1 Mg PO DAILY 30 Days Past Medical History Past Medical History Substance abuse and currently a patient of a methadone clinic, unstable angina brought on by stress and described as substernal chest heaviness brought on by stress. Past Surgical History Surgical History Comment Remarkable for right hip surgery as well as L4/L5 back surgery. Family History Family History: FH: alcoholism Maternal Grandfather FH: congestive heart failure FATHER Paternal Grandmother Past Social History Social History Comment He quit smoking years ago. He smoked for about 28 years from the age of 14 up until the age of about 42 in smoked up to about three packs of cigarettes a day. He also quit using alcohol. He is on methadone. ROS ROS A 14 point review of systems was obtained and is as in his history of present illness and past medical history. Exam Vitals: Vital Signs Date Time Temp Pulse Resp B/P (MAP) Pulse Ox O2 Delivery O2 Flow Rate FiO2 10/21/24 17:01 98.5 60 10 112/68 (83) 98 2.0 General: Awake alert and conversant. No distress. HEENT: N/C/AT, PERRLA, EOMI Neck: Neck: Supple with no jugular venous distention and no lymphadenopathy. Chest: Symmetric expansion bilaterally Cardiovascular: Bradycardia episodes, normal S1 and S2 without any S3-S4 gallop Abdomen: Nondistended with normal bowel sounds soft nontender no organomegaly Extremities: No cyanosis, no clubbing and no edema. Diagnostic Data Last Recorded Lab Results: 10/21/24 1005 10/21/24 1618 Additional Plan Suspected drug overdose with methadone responsive to intermittent narcan use. Patient more awake and able to give history now. Hypoglycemia: Corrected with D5 LR running at 125 mL/hour. Unstable angina: Recent history of intermittent substernal chest heaviness Jernigan's on by stress. Bradycardia: Could be due to the use of beta-blockers for unstable angina (unable to verify patient's outpatient medications at this moment cholesterol and this or due to drug overdose. We will admit and observe the patient in the intensive care unit overnight. Overall prognosis: Guarded Critical care time: 35 minutes. LIONEL SEGUNDO MD October 21, 2024 17:35
[2024-10-21 17:56] LABS: UA COLLECTION TYPE NON-SPECIFIED
[2024-10-21 17:57] LABS: URINE AMPHETAMINE SCREEN NEGATIVE (Neg); URINE BARBITUATE SCREEN NEGATIVE (Neg); URINE BENZODIAZEPINES SCREEN NEGATIVE (Neg); URINE CANNABINOID SCREEN NEGATIVE (Neg); URINE COCAINE SCREEN NEGATIVE (Neg); URINE METHADONE SCREEN POSITIVE (Neg); URINE OPIATE SCREEN NEGATIVE (Neg); URINE PHENCYCLIDINE SCREEN NEGATIVE (Neg)
[2024-10-21 19:25] LABS: CREATINE KINASE 282 U/L (39-308)
[2024-10-21 20:00] VITALS: RESP 12; O2SAT 97
[2024-10-21] MEDS: heparin, porcine 5000 units/ml vial SQ SCH (20:00)
[2024-10-21] MEDS ORDERED: docusate sod 100mg capsule PO SCH (20:00)
[2024-10-21] MEDS: K and/or MAG REPLACEMENT MC SCH (20:00)
[2024-10-21] MEDS: docusate sod 100mg capsule PO SCH (20:00)
[2024-10-21] MEDS ORDERED: K and/or MAG REPLACEMENT MC SCH (20:00)
[2024-10-21 20:15] VITALS: BP 113/64; PULSE 45; RESP 15; O2SAT 100
[2024-10-21 21:00] VITALS: BP 95/54; PULSE 43; RESP 10; O2SAT 98
[2024-10-21] MEDS: thiamine 100mg/ml 2ml inj. IV SCH (21:37)
[2024-10-21 22:00] VITALS: BP 104/60; PULSE 41; RESP 11; O2SAT 98
[2024-10-21 22:22] VITALS: O2SAT 99
[2024-10-21 23:00] VITALS: BP 123/68; PULSE 44; RESP 16; O2SAT 99
[2024-10-21] MEDS: diazepam inj 5 MG/ML inj. IV SCH (23:40)
[2024-10-22] VITALS (17 sets, daily range): BP systolic 89–133; BP diastolic 42–77; PULSE 41–68; RESP 8–16; TEMP 97; O2SAT 90–100
[2024-10-22] MEDS ORDERED: PRAZ1CAP5 PO (01:53)
[2024-10-22 03:41] LABS: BASOPHILS % (AUTO) 0.6 % (0-1); EOSINOPHILS # (AUTO) 0.1 X10'3 (0-0.9); EOSINOPHILS % (AUTO) 1.6 % (0-6); HEMOGLOBIN 11.8 g/dl (14.0-17.9); LYMPHOCYTES # (AUTO) 0.8 X10'3 (1.1-4.8); LYMPHOCYTES % (AUTO) 17.6 % (21-51); MEAN CORPUSCULAR HEMOGLOBIN 28.9 PG (27.0-31.0); MEAN CORPUSCULAR VOLUME 90.2 FL (78-98); MEAN PLATELET VOLUME 7.7 FL (7.4-10.4); MONOCYTES # (AUTO) 0.3 X10'3 (0-0.9); NEUTROPHILS # (AUTO) 3.5 X10'3 (1.8-7.7); NEUTROPHILS % (AUTO) 73.2 % (42-75); PLATELET COUNT 169 X10'3 (140-440); RED CELL DISTRIBUTION WIDTH 15.5 % (11.5-14.5); WHITE BLOOD COUNT 4.8 X10'3 (4.5-11.0)
[2024-10-22 03:58] LABS: ALANINE AMINOTRANSFERASE 19 U/L (12-78); ALKALINE PHOSPHATASE 101 IU/L (46-116); ANION GAP 5 (8-16); ASPARTATE AMINO TRANSFERASE 18 U/L (10-37); BILIRUBIN,TOTAL 0.5 MG/DL (0.1-1.0); BLOOD UREA NITROGEN 9 MG/DL (7-18); BUN/CREATININE RATIO 11.7 (10.0-20.0); CALCIUM 8.1 MG/DL (8.5-10.1); CHLORIDE 109 MMOL/L (99-107); CHOLESTEROL 169 MG/DL (0-200); CREATININE 0.77 MG/DL (0.60-1.10); GLUCOSE 97 MG/DL (70-104); HDL CHOLESTEROL 56 MG/DL (35-60); LDL CHOLESTEROL 94 MG/DL (50-100); PHOSPHORUS 3.7 MG/DL (2.3-4.5); SODIUM 146 MMOL/L (135-145); TOTAL CARBON DIOXIDE 31.8 MMOL/L (24-32); TOTAL PROTEIN 5.9 G/DL (6.4-8.2); TRIGLYCERIDES 83 MG/DL (20-135); eCRCL 109 ML/MIN; eGFR > 90 ML/MIN
[2024-10-22] MEDS: nicotine 21mg patch - 24 hr TD SCH (08:00)
[2024-10-22] MEDS: folic acid 1mg/0.2ml inj IV SCH (08:14)
[2024-10-22] MEDS: multivitamins, therapeutics tablet PO SCH (08:15)
[2024-10-22] MEDS ORDERED: METH10OR11 PO (09:18)
[2024-10-22] MEDS: methadone 10mg tablet PO ONE (09:42)
[2024-10-22] MEDS ORDERED: CLON-570 PO (10:38)
[2024-10-22] MEDS ORDERED: ACAM333T8 PO (10:38)
--- NOTE | 2024-10-22 11:46 | PROGRESS NOTE ---
Subjective Subjective Patient is seen today. Sitting up in chair and is a little bit tremulous though awake alert and coherent. Reason for visit: Drug overdose Reviewed: Care Plan, H&P, Labs, Previous Orders, Radiology Review of Systems Changes from previous H/P or p: No Changes Daily Progress Note Exam Vitals Vital Signs Date Time Temp Pulse Resp B/P (MAP) Pulse Ox O2 Delivery O2 Flow Rate FiO2 10/22/24 10:00 68 16 127/70 (89) 98 Room Air 10/22/24 07:00 2.0 10/21/24 22:22 28 10/21/24 20:15 97.9 Result Diagram: 10/22/24 0323 10/22/24 0323 Exam General: Awake alert and conversant. No distress. HEENT: N/C/AT, PERRLA, EOMI Neck: Neck: Supple with no jugular venous distention and no lymphadenopathy. Chest: Symmetric expansion bilaterally Cardiovascular: Bradycardia episodes, normal S1 and S2 without any S3-S4 gallop Abdomen: Nondistended with normal bowel sounds soft nontender no organomegaly Extremities: No cyanosis, no clubbing and no edema. VTE VTE Risk Score VTE Risk Score Reference Ranges: Score 0-1 = Low Risk (Aggressive mobilization; early ambulation; no VTE prophylaxis required) Score 2: Moderate Risk (Intermittent/Pneumatic Compression Device OR Lovenox/Heparin/Coumadin) Score 3-4: High Risk (Intermittent/Pneumatic Compression Device AND Lovenox/Heparin/Coumadin) Score > or = 5: Highest Risk (Intermittent/Pneumatic Compression Device AND Lovenox/Heparin/Coumadin) Assessment/Plan Plan Suspected drug overdose with methadone responsive to intermittent narcan use. Patient more awake and able to give history now. Hypoglycemia: Resolved. Corrected with D5 LR running at 125 mL/hour. Need to discontinue IV fluids. Unstable angina: Recent history of intermittent substernal chest heaviness brought on by stress. Needs Cardiology consultation. Bradycardia: Resolved. Could be due to the use of beta-blockers for unstable angina (unable to verify patient's outpatient medications at this moment cholesterol and this or due to drug overdose. Overall prognosis: Guarded Critical care time: 35 minutes. Disposition: Transferred to the floor. LIONEL SEGUNDO MD October 22, 2024 11:46
--- NOTE | 2024-10-22 18:40 | PROGRESS NOTE- Residence ---
Progress Note - Resident Providers to CC Resident Creating Document: CESAR BURCIAGA RES ~ Antibiotic Timeout Antibiotic Ordered?: No Subjective Patient was seen in ICU today. He is awake alert and more coherent. A little bit tremulous. Downgraded to PCU. Objective Vital Signs Date Time Temp Pulse Resp B/P (MAP) Pulse Ox O2 Delivery O2 Flow Rate FiO2 10/22/24 17:00 49 13 95/55 (68) 93 10/22/24 16:00 Room Air 10/22/24 07:00 2.0 10/21/24 22:22 28 10/21/24 20:15 97.9 General Appearance: Awake alert and coherent HEENT: pinpoint pupils Cardiac: RRR, no murmur, rub or gallop. Normal S1 and S2. GI: No tenderness. Abdomen symmetric, nondistended, soft, normal bowel sounds x4 quadrant normoactive. No guarding, no rebound or rigidity. No hepatosplenomegaly. No masses, no bruit, no flank pain bilaterally. Extremities: Normal ROM, no swelling, non-tender. Distal pulses full symmetrical, no clubbing, cyanosis, edema, capillary refill less than 2 seconds. Skin: Intact, dry, warm, no rashes or petechia. Neuro: Speech is clear, alert and oriented x4. No sensory or motor deficit, DTRs normal. Cranial nerves II to XII intact. Bilateral tremors noted Psych: Normal affect, good eye contact, no apparent hallucination, normal speech. Result Diagram: 10/22/24 0323 10/22/24 0323 Advance Care Planning Advanced Care plannin - 30 Minutes Assessment Assessment The patient is a 54-year-old male with a longstanding history of alcohol use disorder, who goes to methadone clinic brought to via EMS with altered level of consciousness after taking an unspecified amount of methadone.. He also has a history of DT and polysubstance use, including methamphetamine and fentanyl. This is his 4th ED visit this year for similar presentations, with previous admission on April 14, 2024, and September 17, 2024, both related to substance withdrawal and altered mental status. Upon arrival today, the patient was obtunded, and responded to naloxone. Post reversal, he became acutely agitated, requiring sedation with diazepam, and Ativan. He also received Zyprexa 5 mg, given twice. Plan Plan History of polysubstance abuse History of methamphetamine abuse Claimed taking methadone, more likely methadone overdose Recurrent episodes of drowsiness respiratory depression - responds well to Narcan Received repeated boluses of Narcan for recurrent respiratory depression Narcan 0.2 mg every 20 minutes as needed Perfusing well with 2 L supplemental oxygen via nasal cannula; keep oxygen saturation between 90- 94% Monitor closely for hypoventilation or need for airway intervention Continuous telemetry, monitor for arrhythmia, QTC prolongation Continue IV hydration; D5/NS 125 ml/hr Substance use navigation consult requested Alcohol use disorder Alcohol-induced psychotic disorder Severe alcohol withdrawal symptoms: CIWA-Ar Score 24 Soft restrains, sitter in place Symptom-triggered regimen for CAT - Ativan 2 mg IV as needed for CIWA-Ar >10 (parameters included in the order). - Valium 10 mg IV every 6 hrs scheduled, transitioning to every 8 hrs scheduled tomorrow & subsequently every 12 hrs the day after. - Continue symptom triggered Ativan per CIWA protocol - Zyprexa 10 mg IM adjunctive therapy for agitation - Continue thiamine and folic acid IV - vp celebrity services consulted History of CVA No chronic residual sequelae History of degenerative joint disease Status post ORIF right hip 2018 L4-L5 surgery Pain management Tobacco use disorder Vaping - nicotine patch DVT prophylaxis: Heparin Code status: Full code [facility] Resident Date of Service: October 22, 2024 Billing Provider: ERIC AMADOR MD Common Visit Codes: [id number] INP/OBS CARE(HIGH) CESAR BURCIAGA, RES October 22, 2024 18:40 ERIC AMADOR MD Oct 26, 2024 16:43
[2024-10-22] MEDS: OLANZapine **IM** 10 mg inj. IM SCH (20:11)
[2024-10-23 02:00] VITALS: BP 120/62; PULSE 47; RESP 14; TEMP 97.2; O2SAT 95
[2024-10-23] MEDS ORDERED: diazepam inj 5 MG/ML inj. IV SCH (08:00)
[2024-10-23] MEDS ORDERED: methadone 10mg tablet PO SCH (08:00)
--- NOTE | 2024-10-26 16:46 | DISCHARGE SUMMARY ---
Discharge Summary Providers to CC ~ Discharge Summary Admission Diagnosis: OD, Altered Mentation,hypoglycemia Hospital Course DATE OF ADMISSION: 10/21/2024 DATE OF DISCHARGE: Left against medical advice on 10/23/2024 Discharge Diagnosis\Comment: Left against medical advice on 10/23/2024 Operations\Procedures: None Consultants: [facility] Complications: Patient left AMA. Had no suicidal or homicidal ideations Condition on DC: Unstable Discharge Summary: Left against medical advice on 10/23/2024 *Problems/Diagnosis: (1) Methadone dependence Status: Acute Total Time Spent on D/C: Up to 30 Minutes Date of Service: October 23, 2024 Billing Provider: ERIC AMADOR MD Common Visit Codes: NOT BILLABLE ( Left against medical advice on 10/23/2024) ERIC AMADOR MD Oct 26, 2024 16:46
== END 2024-10-23 04:55 | disposition left against medical advice (07) | DRG 917 ==
LOC: ER 08:02 → ED HOLD 14:08 → UNDOADMIN 14:08 → ED HOLD 17:28 → CICU 2S 19:59 → PCU 3S 10-22 21:15
PROVIDERS: ADMIT Internal Medicine Critical Care Medicine; ATTEND Family Medicine
PROC: 05HB33Z Insertion of Infusion Device into Right Basilic Vein, Percutaneous Approach (ICD-10-PCS; principal; 2024-10-22)
PROC: B54MZZA Ultrasonography of Right Upper Extremity Veins, Guidance (ICD-10-PCS; 2024-10-22)
DX: T40.3X1A Poisoning by methadone, accidental (unintentional), initial encounter (principal); G93.41 Metabolic encephalopathy; F10.259 Alcohol dependence with alcohol-induced psychotic disorder, unspecified; I20.0 Unstable angina; Z53.21 Procedure and treatment not carried out due to patient leaving prior to being seen by health care provider; I11.0 Hypertensive heart disease with heart failure; E16.2 Hypoglycemia, unspecified; J44.9 Chronic obstructive pulmonary disease, unspecified; I50.9 Heart failure, unspecified; T40.691A Poisoning by other narcotics, accidental (unintentional), initial encounter; Y92.89 Other specified places as the place of occurrence of the external cause; Z88.8 Allergy status to other drugs, medicaments and biological substances; Z91.018 Allergy to other foods; Z87.891 Personal history of nicotine dependence
CPT/HCPCS: 36410; 36415; 36600; 70450; 71045; 76937; 80048; 80053; 80061; 80305; 80320; 81003; 82140; 82550; 82803; 82948; 83036; 83735; 84100; 84484; 85018; 85025; 87081; 93005; 96372; 96374; 96376; 99285; 99291; A4615; A6258; A6449; A6590; G0378; J1644; J2060; J2310; J3360; J3411; J3490; J7030; J7042; J7120; J7121

== ENCOUNTER 2024-10-23 13:28 | Emergency (ER) | payer MEDICARE, MEDICAID ==
[~2024-10-23] VITALS: Ht 172.7 cm; Wt 87.7 kg
[~2024-10-23 13:28] MED LIST changes: +ACAM333T8 PO; -CHLO25CA10 PO; +CLON-570 PO; -FOLI1TAB27 PO; +METH10OR11 PO; +PRAZ1CAP5 PO; -THIA50TA10 PO; -thiamine tablet PO
[2024-10-23 13:47] VITALS: TEMP 98.3
--- NOTE | 2024-10-23 15:14 | Physician Documentation ---
History of Present Illness ~ Chief Complaint: Shortness of Breath Stated Complaint: LOW 02 Time Seen by MD: 14:34 OK to notify your PCP?: Yes Primary Medical Doctor: DR. MEMBRENO Source: patient, family, RN/, RN notes reviewed, old records Mode of Arrival: POV Exam Limitations: no limitations HPI 54 year old male seen in bed six presents to the emergency department for complaints of overdose symptoms. Patient was admitted this morning to the ICU due to an overdosing on methadone. He was hypoxic and put on ABG when admitted and given narcan. Patient states that he had left admission against medical advice but his partner brought him back because the patient seems confused which is not normal for him. Patient has no medical complaints at this time and states he feels fine. Patient denies any other associated symptoms at this time. Patient denies any other alleviating or exacerbating factors. Medication Reconciliation Allergies: Coded Allergies: ketorolac tromethamine (Unverified Allergy, Mild, HEADACHE, 10/23/24) pineapple (Unverified Allergy, Mild, HEADACHE, 10/23/24) Scheduled Acamprosate Calcium (Acamprosate Calcium), 2 TAB PO TID, (Reported) Clonazepam (Clonazepam), 1 TAB PO HS, (Reported) Methadone Hcl (Methadone), 179 MG PO DAILY, (Reported) Prazosin Hcl (Prazosin Hcl), 1 CAP PO HS, (Reported) Discontinued Medications Chlordiazepoxide Hcl (Librium), 2 CAP PO Q4H PRN for anxiety Discontinued Reason: Other Chlordiazepoxide Hcl (Librium), 25 MG PO BID PRN for alcohol withdrawal Discontinued Reason: Other Folic Acid* (Folic Acid*), 1 MG PO DAILY Discontinued Reason: Other Prazosin Hcl (Prazosin Hcl), 1-2 CAP PO HS PRN for nightmares, (Reported) Discontinued Reason: Other Thiamine HCl (Vitamin B-1), 2 TAB PO DAILY Discontinued Reason: Other [thiamine tablet], 200 MG PO DAILY Discontinued Reason: Other Past Medical History Past Medical History: Hypertension, COPD, Chronic Back Pain, Extremity Fracture Past Surgical History: orthopedic surgeries Patient History: FH: alcoholism Maternal Grandfather FH: congestive heart failure FATHER Paternal Grandmother Alcohol Use: Alcoholic Drug Use: methamphetamine Lives In: Home Occupation: employed Review of Systems All Other Systems at this time: Reviewed and Negative ROS As stated above in the HPI, otherwise all systems are reviewed and negative. Physical Exam Vital Signs: RN Vital Signs have been reviewed: Yes, Temperature: 98.3, Source: Temporal, Respiratory Rate: 13, BP: 102/50, Pulse Oximetry: 96, Weight: 87.700 Oxygen Flow Rate: 0 Pulse Oximetry Reflects: adequate oxygenation Physical Exam General: Patient is slow in speech. The patient is well developed, well nourished, nontoxic appearing and is in no acute distress. Skin: [place], warm and dry with no rashes. HEENT: Head was normocephalic and atraumatic. Eyes - pupils equal, round, reactive to light and accommodation. Extraocular movements were intact. Conjunctivae were nonicteric. Ears - bilateral tympanic membranes were normal. The mouth and oropharynx were clear with moist mucous membranes. There were no pharyngeal exudates or erythema. Neck: Supple and nontender. There was no jugular venous distention, lymphadenopathy, thyromegaly or masses. Chest: Clear to auscultation bilaterally without wheezes, rales or rhonchi. No accessory muscle use. No dullness to percussion. Heart: 4/6 systolic ejection murmur. Rate regular and rhythmic. S1, S2. Palpation of the chest wall was normal. No rubs or thrills. Abdomen: Soft, nontender and nondistended. Positive bowel sounds. No guarding or rebound. No hepatosplenomegaly or palpable masses. Extremities: No cyanosis, clubbing or edema. The patient moves all extremities. Pulses were equal and symmetric. Neurologic: Cranial nerves II-XII were intact. Sensation was intact to light touch throughout. Motor strength was 5/5 in all four extremities. Deep tendon reflexes were intact in both upper and lower extremities. Psychologic: The patient was oriented to person, place and time. The patient demonstrated appropriate judgement and insight. Progress Results/Orders Results/Orders Orders - BEN JOHNSON MD Urinalysis, Cult If Indicated (10/23/24 15:12) Electrocardiogram (10/23/24 15:12) Chest,Single View (10/23/24 15:12) Drug Screen, Urine (10/23/24 15:12) Monitor (10/23/24 15:12) Saline Lock (10/23/24 15:12) BMP (10/23/24 16:10) Ethanol (10/23/24 16:10) MG (10/23/24 16:10) Hs Troponin I W Calculations (10/23/24 16:10) Completed Orders - BEN JOHNSON MD Cbc/Diff (10/23/24 15:12) Electrocardiogram (10/23/24 15:12) Chest,Single View (10/23/24 15:12) Normal Saline 1000ml (Sodium Chloride 10 (10/23/24 15:15) Medications Received in ER Medications (Trade) Dose Ordered Sig/Dequan Route PRN Reason Start Time Stop Time Status Last Admin Dose Admin (sodium chloride 1000ml IV soln) 1,000 ml ONCE ONCE IVB 10/23/24 15:15 10/23/24 15:16 DC 10/23/24 16:02 1,000 ML Vital Signs 10/23/24 10/23/24 13:47 14:31 Temp 98.3 Resp 16 13 B/P (MAP) 102/50 Pulse Ox 96 O2 Flow Rate 0 Laboratory Tests Test 10/23/24 15:33 10/23/24 16:21 White Blood Count 6.5 Red Blood Count 4.02 L Hemoglobin 11.9 L Hematocrit 35.9 L Mean Corpuscular Volume 89.3 Mean Corpuscular Hemoglobin 29.5 Mean Corpuscular Hemoglobin Concent 33.0 Red Cell Distribution Width 15.8 H Platelet Count 169 Mean Platelet Volume 8.3 Neutrophils (%) (Auto) 66.2 Lymphocytes (%) (Auto) 23.8 Monocytes (%) (Auto) 8.6 Eosinophils (%) (Auto) 0.8 Basophils (%) (Auto) 0.6 Neutrophils # (Auto) 4.3 Lymphocytes # (Auto) 1.6 Monocytes # (Auto) 0.6 Eosinophils # (Auto) 0.1 Basophils # (Auto) 0.0 CBC Comment Chemistry Comments Re-Evaluation Re-evaluation : Re-Evaluation: Improved Progress Patient was seen and examined. Patient was given reassurance. Patient did not have a restful night. He was up till 5:00 a.m. and left AMA and started moving. He seemed to be confused patient's significant other noticed that he was not making sense so brought him in for evaluation when she found out he left against medical advice. Patient's laboratory work was redrawn CBC is within normal limits some slight anemia with 11 and 35 hemoglobin hematocrit. Chemistry and toxicology are pending patient refused to stay before the results are completed. Labs were hemolyzed and were redrawn. X-ray was also reassuring without any in filtrates or effusion her some increased perihilar markings his oxygen saturation isn't all longer hypoxic. Last night he was having low saturation in the 80s from methadone overdose. Patient is placed on a monitor and doing well. Patient did receive a L of fluid. Patient appears well to me patient also agrees family members were a bit concerned. Continuous clinical research monitor interpretation shows normal sinus rhythm heart rate 80s, no ectopy, normal, my interpretation. Pulse oximetry monitor interpretation shows normal oxygenation 98% room air, normal, my interpretation. EKG/XRAY/CT/US/VASC/MRI EKG : Additional Comment CHEST RADIOGRAPH Indication: Confused Technique: Single frontal view of the chest was obtained COMPARISON: DI CHEST,SINGLE VIEW on DOS: 10/21/24 FINDINGS: Lines and Tubes: None Lungs: Mild diffuse interstitial prominence is similar from prior. No focal airspace consolidation. Pleura: No effusion. No pneumothorax. Cardiomediastinal contours: Unremarkable Bones: Unremarkable IMPRESSION: Mild interstitial prominence is similar from prior. No focal consolidation. Electronically Signed by:GAIL RODRIGUEZ DO Date & Time: 10/23/24 1551 Chest X-Ray : Additional Comments CHEST RADIOGRAPH Indication: Confused Technique: Single frontal view of the chest was obtained COMPARISON: DI CHEST,SINGLE VIEW on DOS: 10/21/24 FINDINGS: Lines and Tubes: None Lungs: Mild diffuse interstitial prominence is similar from prior. No focal airspace consolidation. Pleura: No effusion. No pneumothorax. Cardiomediastinal contours: Unremarkable Bones: Unremarkable IMPRESSION: Mild interstitial prominence is similar from prior. No focal consolidation. Electronically Signed by:GAIL RODRIGUEZ DO Date & Time: 10/23/24 1551 Medical Decision Making Additional info obtained from: old records Differential Dx:Considerations: Include: anxiety, asthma, myocardial infarction, panic attack, pneumonia, pneumonitis, pneumothorax, pulmonary embolism, respiratory distress, respiratory failure, sinusitis, upper resp. infection, other Departure Time of Disposition: 16:38 Disposition: 01 HOME / SELF CARE / HOMELESS Impression: Primary Impression: General medical exam Condition: Stable Discharge Instructions: Shortness of Breath, Adult, [id number] Referrals: NO PRIMARY CARE PROVIDER (PCP) Education Educated: Patient, Family Educated regarding: diagnosis, treatment, prognosis Signature Scribe Signature: Scribed for Ben Johnson MD by Dario Beckwith . 10/23/24 15:24 Attestation: The note accurately reflects work and decisions made by me.Ben Johnson MD 10/23/24 15:14 BEN JOHNSON MD October 23, 2024 15:14 DARIO GOMES October 23, 2024 15:24
--- NOTE | 2024-10-23 15:20 | ELECTROCARDIOGRAPH REPORT ---
[facility] Test Date: 2024-10-23 Test Time: 15:17:06 Pat Name: JERONIMO VICTORIA Department: [facility]- Patient ID: [facility]-[id number] Room: Gender: M Pond Tender: : 1970 Requested By: LISA JOHNSON Order Number: [id number] Reading MD: Dr. Lisa Johnson Measurements Intervals [place] Rate: 59 P: 16 WI: 167 QRS: -56 QRSD: 105 T: 0 QT: 456 QTc: 452 Interpretive Statements Sinus bradycardia Left anterior fascicular block Consider anterior infarct Electronically Signed On 10-23-2024 16:08:[address] Lisa Johnson Please click the below link to view image of tracing.
--- NOTE | 2024-10-23 15:54 | RADIOLOGY REPORT ---
CHEST RADIOGRAPH Indication: Confused Technique: Single frontal view of the chest was obtained COMPARISON: DI CHEST,SINGLE VIEW on DOS: 10/21/24 FINDINGS: Lines and Tubes: None Lungs: Mild diffuse interstitial prominence is similar from prior. No focal airspace consolidation. Pleura: No effusion. No pneumothorax. Cardiomediastinal contours: Unremarkable Bones: Unremarkable IMPRESSION: Mild interstitial prominence is similar from prior. No focal consolidation.
[2024-10-23 15:58] LABS: BASOPHILS % (AUTO) 0.6 % (0-1); NEUTROPHILS # (AUTO) 4.3 X10'3 (1.8-7.7); PLATELET COUNT 169 X10'3 (140-440); RED CELL DISTRIBUTION WIDTH 15.8 % (11.5-14.5)
[2024-10-23 16:00] LABS: EOSINOPHILS # (AUTO) 0.1 X10'3 (0-0.9); EOSINOPHILS % (AUTO) 0.8 % (0-6); HEMATOCRIT 35.9 % (42.0-52.0); HEMOGLOBIN 11.9 g/dl (14.0-17.9); LYMPHOCYTES # (AUTO) 1.6 X10'3 (1.1-4.8); LYMPHOCYTES % (AUTO) 23.8 % (21-51); MEAN CORPUSCULAR HEMOGLOBIN 29.5 PG (27.0-31.0); MEAN CORPUSCULAR VOLUME 89.3 FL (78-98); MEAN PLATELET VOLUME 8.3 FL (7.4-10.4); MONOCYTES # (AUTO) 0.6 X10'3 (0-0.9); MONOCYTES % (AUTO) 8.6 % (2-12); NEUTROPHILS % (AUTO) 66.2 % (42-75); RED BLOOD COUNT 4.02 X10'6 (4.70-6.10); WHITE BLOOD COUNT 6.5 X10'3 (4.5-11.0)
[2024-10-23] MEDS: normal saline 1000ML IV soln IVB ONE (16:02)
[2024-10-23 16:50] LABS: ALBUMIN 3.4 G/DL (3.4-5.0); ANION GAP 11 (8-16); BLOOD UREA NITROGEN 11 MG/DL (7-18); BUN/CREATININE RATIO 11.5 (10.0-20.0); CHLORIDE 106 MMOL/L (99-107); CREATININE 0.96 MG/DL (0.60-1.10); ETHANOL 33 MG/DL (<10); GLUCOSE 57 MG/DL (70-104); MAGNESIUM 1.9 MG/DL (1.5-2.4); POTASSIUM 3.5 MMOL/L (3.5-5.1); SODIUM 143 MMOL/L (135-145); TOTAL CARBON DIOXIDE 26.4 MMOL/L (24-32); eCRCL 87 ML/MIN; eGFR 82 ML/MIN
[2024-10-23 16:52] VITALS: BP 115/61; PULSE 62; RESP 18; O2SAT 96
== END 2024-10-23 16:45 | disposition home or self-care (01) ==
LOC: ER 13:29
DX: R06.02 Shortness of breath (principal); R41.0 Disorientation, unspecified; F15.90 Other stimulant use, unspecified, uncomplicated; F10.90 Alcohol use, unspecified, uncomplicated; J44.9 Chronic obstructive pulmonary disease, unspecified; I10 Essential (primary) hypertension; Z88.8 Allergy status to other drugs, medicaments and biological substances; Z79.899 Other long term (current) drug therapy; Y90.9 Presence of alcohol in blood, level not specified
CPT/HCPCS: 36415; 71045; 80048; 83735; 84484; 85025; 93005; 99285; G0480; J7030; 80320

== ENCOUNTER 2024-12-17 10:18 | Emergency (ER) | payer MEDICARE, MEDICAID ==
[~2024-12-17] VITALS: Ht 172.7 cm; Wt 87.5 kg
--- NOTE | 2024-12-17 10:45 | Physician Documentation ---
History of Present Illness ~ Chief Complaint: ETOH Withdrawl Stated Complaint: ALCOHOL WITHDRAWAL Time Seen by MD: 10:31 Primary Medical Doctor: DR. MEMBRENO Source: patient Mode of Arrival: POV, Dropped Off Exam Limitations: no limitations HPI Chief Complaint: Alcohol withdrawal Caveat: None Independent Historians: None History of Present Illness: Patient is a 54-year-old man who comes in complaining of symptoms of alcohol withdrawal. These symptoms include shaking, nausea and sweats. No seizures. No abdominal pain. Visual changes, no hallucinations. Patient last drank alcohol 10:00 p.m. last night. Patient has been drinking three pt of vodka a day for one week. Patient had been sober for four months and relapsed one week ago. Patient has been going to AA. Patient denies any other associated symptoms. Review of systems: All systems were reviewed and are negative except for what is indicated in the history of present illness. Past Medical History: Alcoholism, on methadone program at [facility] Past Surgical History: None Social History: Tobacco use, marijuana use, alcohol use, past history of fentanyl use but has been clean Medications: Reviewed as documented Nursing Notes Allergies: Reviewed as documented in Nursing Notes Tetanus within 5 years?: Yes Medication Reconciliation Allergies: Coded Allergies: ketorolac tromethamine (Unverified Allergy, Mild, HEADACHE, 10/23/24) pineapple (Unverified Allergy, Mild, HEADACHE, 10/23/24) Scheduled Acamprosate Calcium (Acamprosate Calcium), 2 TAB PO TID, (Reported) Chlordiazepoxide Hcl (Librium), 1 CAP PO DIRECTED Clonazepam (Clonazepam), 1 TAB PO HS, (Reported) Gabapentin (Gabapentin ER), 1 TAB PO HS Methadone Hcl (Methadone), 179 MG PO DAILY, (Reported) Prazosin Hcl (Prazosin Hcl), 1 CAP PO HS, (Reported) Past Medical History Past Medical History: Hypertension, COPD, Chronic Back Pain, Extremity Fracture Past Surgical History: orthopedic surgeries Patient History: FH: alcoholism Maternal Grandfather FH: congestive heart failure FATHER Paternal Grandmother Alcohol Use: Alcoholic Drug Use: methamphetamine Lives In: Home Occupation: employed Review of Systems All Other Systems at this time: Reviewed and Negative ROS Patient denies any other acute symptoms other than above. All other systems are negative Physical Exam Vital Signs: RN Vital Signs have been reviewed: Yes, Temperature: 98.7, Source: Oral, Heart Rate: 61, Respiratory Rate: 13, BP: 153/93, Pulse Oximetry: 96, Weight: 87.500 Oxygen Flow Rate: 0 Pulse Oximetry Reflects: adequate oxygenation Physical Exam General Appearance: MODERATE DISTRESS HEENT: Normal OP, moist oral mucosa, PERRL, EOMI Neck: supple, normal ROM, trachea midline Pulmonary: No respiratory distress, CTA, BS equal Cardiac: RRR, no murmur, rub or gallop, GI: nondistended, soft, nontender, normal bowel sounds, no guarding, no rebound Extremities: normal ROM, no swelling, non-tender, TREMORS IN HANDS AND UPPER EXTREMITIES Skin: intact, DIAPHORETIC, warm, no rashes Neuro: AAOx3, speech is clear, no focal motor weakness Psych: normal affect, good eye contact, no apparent hallucination, normal speech Progress Results/Orders Results/Orders Orders - FLORY JENNINGS MD Monitor (12/17/24 10:34) Saline Lock (12/17/24 10:34) Completed Orders - FLORY JENNINGS MD CMP (12/17/24 10:34) Cbc/Diff (12/17/24 10:34) Lipase (12/17/24 10:34) Ondansetron Inj. (Zofran 4mg/2ml Vial) (12/17/24 10:35) Normal Saline 1000ml (0.9% Sodium Chlori (12/17/24 10:35) Phenobarbital Inj (Phenobarbital Inj.) (12/17/24 10:40) Folic Acid Inj. (Folic Acid Inj.) (12/17/24 12:30) Thiamine Inj. (Thiamine Inj.) (12/17/24 12:30) Ua W/Microscopic, Cult If Ind (12/17/24 12:40) Chlordiazepoxide Capsule (Librium Capsul (12/17/24 13:15) Chlordiazepoxide Capsule (Librium Capsul (12/17/24 13:15) Vital Signs 12/17/24 12/17/24 12/17/24 12/17/24 10:20 10:29 10:29 11:33 Temp 98.7 98.7 Pulse 70 61 57 Resp 16 13 13 12 B/P (MAP) 168/86 153/93 (113) 138/67 (90) Pulse Ox 97 96 94 O2 Flow Rate 0 0 12/17/24 12/17/24 12:29 13:31 Temp 98.6 Pulse 78 58 Resp 17 12 B/P (MAP) 150/72 (98) 128/64 Pulse Ox 98 96 Laboratory Tests Test 12/17/24 10:50 12/17/24 12:15 12/17/24 12:40 12/17/24 13:13 White Blood Count 6.2 Red Blood Count 4.42 L Hemoglobin 13.1 L Hematocrit 39.5 L Mean Corpuscular Volume 89.4 Mean Corpuscular Hemoglobin 29.7 Mean Corpuscular Hemoglobin Concent 33.2 Red Cell Distribution Width 14.0 Platelet Count 199 Mean Platelet Volume 7.4 Neutrophils (%) (Auto) 73.1 Lymphocytes (%) (Auto) 21.1 Monocytes (%) (Auto) 4.6 Eosinophils (%) (Auto) 0.4 Basophils (%) (Auto) 0.8 Neutrophils # (Auto) 4.5 Lymphocytes # (Auto) 1.3 Monocytes # (Auto) 0.3 Eosinophils # (Auto) 0.0 Basophils # (Auto) 0.0 CBC Comment Sodium Level 137 Potassium Level 3.6 Chloride Level 103 Carbon Dioxide Level 24.0 Anion Gap 10 Blood Urea Nitrogen 16 Creatinine 0.46 L Estimated GFR/1.73 m2 > 90 BUN/Creatinine Ratio 34.8 H Glucose Level 57 L Calcium Level 8.0 L Total Bilirubin 0.4 Aspartate Amino Transf (AST/SGOT) 33 Alanine Aminotransferase (ALT/SGPT) 26 Alkaline Phosphatase 113 Total Protein 6.3 L Albumin 3.3 L Globulin 3.0 Albumin/Globulin Ratio 1.1 Lipase 12 L Chemistry Comments Glucometer 106 H 165 H Urine Specimen Description Cln catch midstream Urine Color Yellow Urine Clarity Clear Urine pH 6.0 Urine Specific [place] >=1.030 Urine Protein Negative Urine Glucose (UA) Negative Urine Ketones 40 H Urine Occult Blood Trace-intact Urine Nitrite Negative Urine Bilirubin Negative Urine Urobilinogen 0.2 Urine Leukocyte Esterase Negative Urine RBC 0-2 Urine WBC 0-4 Urine Squamous Epithelial Cells Few Urine Bacteria None seen Urine Culture Indicated Not ind Volume Urine Centrifuged 10 ml Urine Comment Medical Decision Making Findings Differential diagnosis includes but is not limited to: Alcohol withdrawal, delirium tremens, dehydration, electrolyte abnormalities, acute kidney injury, AKA Laboratory data independent interpretation: CBC: Unremarkable, mild anemia, hemoglobin 13.1 CMP: Serum glucose is low at 57. Patient is given food to eat in his blood glucose improved to 106 and 165 Urinalysis: Unremarkable Emergency department course/medical decision-making: Patient is a 54-year-old man who comes in complaining of symptoms consistent with alcohol withdrawal. Patient is placed on a quality assurance monitor chassis and IV placed. Patient is hemodynamically stable. Patient is given 1 L normal saline, phenobarb 130 mg IV. This helped his symptoms. Patient is given folate 1 mg IV, thiamine 100 mg IV. Patient given Zofran 4 mg IV. Patient's nausea has improved. He is eating. Patient is stable for discharge. Patient states that he will abstain from alcohol. He is going to and has a sponsor. Patient is given 125 mg of Librium prior to discharge. Patient will be given a prescription for Librium and gabapentin for 10 days. Patient is stable for discharge. Patient does not meet admission criteria. Test results treatment plan and all the above discussed with the patient. Departure Time of Disposition: 12:30 Disposition: HOME / SELF CARE / HOMELESS Impression: Primary Impression: Alcohol withdrawal syndrome Qualified Codes: F10.930 - Alcohol use, unspecified with withdrawal, uncomplicated Condition: Improved Discharge Instructions: Alcohol Abuse and Nutrition, Alcohol Withdrawal Syndrome, [id number] Additional Instructions: CONTINUE GO TO ALCOHOLICS ANONYMOUS. FOLLOW UP WITH YOUR PRIMARY CARE DOCTOR. RETURN IF SYMPTOMS WORSEN. ABSTAIN FROM ALL ALCOHOL. Prescriptions Gabapentin (Gabapentin ER) 300 Mg Tab.er.24h 1 TAB PO HS, #10 TAB Prov: FLORY JENNINGS MD 12/17/24 Chlordiazepoxide Hcl (Librium) 25 Mg Capsule 1 CAP PO DIRECTED, #20 CAP 0 Refills TAKE ONE TABLET 4 TIMES A DAY FOR TWO DAYS THEN ONE TABLET 3 TIMES A DAY FOR TWO DAYS THEN ONE TABLET TWICE A DAY FOR TWO DAYS THEN ONE TABLET DAILY FOR ONE DAY Prov: FLORY JENNINGS MD 12/17/24 Education Educated: Patient Educated regarding: diagnosis, treatment, need for follow up Signature Scribe Signature: No Scribe Attestation: No scribe FLORY JENNINGS MD Dec 17, 2024 10:45
[2024-12-17] MEDS: ondansetron/PF 4mg/2ml inj IV ONE (10:53)
[2024-12-17] MEDS: normal saline 1000ML IV soln IVB ONE (10:54)
[2024-12-17 10:57] LABS: MEAN PLATELET VOLUME 7.4 FL (7.4-10.4); RED CELL DISTRIBUTION WIDTH 14.0 % (11.5-14.5)
[2024-12-17 11:16] LABS: CREATININE 0.46 MG/DL (0.60-1.10); TOTAL CARBON DIOXIDE 24.0 MMOL/L (24-32); eCRCL 182 ML/MIN; eGFR > 90 ML/MIN
[2024-12-17] MEDS ORDERED: GABA300T28 PO (12:35)
[2024-12-17] MEDS ORDERED: CHLO25CA10 PO (12:35)
[2024-12-17] MEDS: thiamine 100mg/ml 2ml inj. IV ONE (12:41)
[2024-12-17] MEDS: folic acid 1mg/0.2ml inj IV ONE (12:41)
[2024-12-17 12:49] LABS: LEUKOCYTE ESTERASE ,URINE NEGATIVE (Neg); NITRITES, URINE NEGATIVE (Neg); OCCULT BLOOD,URINE TRACE-INTACT (Neg)
[2024-12-17 12:53] LABS: UA COLLECTION TYPE CLN CATCH MIDSTREAM
[2024-12-17 13:00] LABS: SQUAMOUS EPITHELIAL CELL,UR FEW /LPF (FEW)
[2024-12-17 13:31] VITALS: BP 128/64; PULSE 58; RESP 12; TEMP 98.6; O2SAT 96
== END 2024-12-17 13:33 | disposition home or self-care (01) ==
LOC: ER 10:19
DX: F10.930 Alcohol use, unspecified with withdrawal, uncomplicated (principal); F12.90 Cannabis use, unspecified, uncomplicated; I10 Essential (primary) hypertension; J44.9 Chronic obstructive pulmonary disease, unspecified; Z88.8 Allergy status to other drugs, medicaments and biological substances; Y90.9 Presence of alcohol in blood, level not specified
CPT/HCPCS: 36415; 80053; 81001; 82948; 83690; 85025; 96361; 96374; 96375; 99284; J2405; J2560; J3411; J3490; J7030

== ENCOUNTER 2025-01-09 11:24 | Emergency (ER) | payer MEDICARE, MEDICAID ==
[~2025-01-09] VITALS: Ht 172.7 cm; Wt 78.6 kg
[~2025-01-09 11:24] MED LIST changes: +CHLO25CA10 PO; +GABA300T28 PO
[2025-01-09 11:38] VITALS: TEMP 98.1
[2025-01-09] MEDS: normal saline 1000ML IV soln IVB ONE ×2 (12:45→14:42)
[2025-01-09 13:47] LABS: MEAN PLATELET VOLUME 7.1 FL (7.4-10.4); RED CELL DISTRIBUTION WIDTH 15.0 % (11.5-14.5)
[2025-01-09 13:57] LABS: LEUKOCYTE ESTERASE ,URINE NEGATIVE (Neg); NITRITES, URINE NEGATIVE (Neg); OCCULT BLOOD,URINE SMALL (Neg)
[2025-01-09 14:03] LABS: UA COLLECTION TYPE CLN CATCH MIDSTREAM
[2025-01-09 14:04] LABS: MUCUS STRANDS FEW /LPF (Neg); SQUAMOUS EPITHELIAL CELL,UR FEW /LPF (FEW)
[2025-01-09 14:05] LABS: CREATININE 0.60 MG/DL (0.60-1.10); ETHANOL 297 MG/DL (<10); TOTAL CARBON DIOXIDE 25.8 MMOL/L (24-32); eCRCL 139 ML/MIN; eGFR > 90 ML/MIN
[2025-01-09 14:23] LABS: URINE AMPHETAMINE SCREEN NEGATIVE (Neg); URINE BARBITUATE SCREEN NEGATIVE (Neg); URINE BENZODIAZEPINES SCREEN POSITIVE (Neg); URINE CANNABINOID SCREEN NEGATIVE (Neg); URINE COCAINE SCREEN NEGATIVE (Neg); URINE METHADONE SCREEN POSITIVE (Neg); URINE OPIATE SCREEN NEGATIVE (Neg); URINE PHENCYCLIDINE SCREEN NEGATIVE (Neg)
[2025-01-09] MEDS: magnesium sulf-water 2g/50mL 50 ML IV ONE (14:35)
[2025-01-09] MEDS: diazepam inj 5 MG/ML inj. IV ONE (14:40)
[2025-01-09] MEDS: thiamine 100mg/ml 2ml inj. IV ONE (14:41)
--- NOTE | 2025-01-09 14:44 | Physician Documentation ---
History of Present Illness ~ Chief Complaint: ETOH Withdrawl Stated Complaint: ETOH Time Seen by MD: 13:40 Primary Medical Doctor: DR. MEMBRENO Mode of Arrival: EMS HPI 54-year-old male presents to the ED with a complaint of alcohol withdrawal after drinking large amounts of hard alcohol over the last three days. He has a long history of alcoholism as well. States over the last three days he has drank a total of 1 gal of hard alcohol. States that he is currently in withdrawals denies any chest pain shortness of breath says he feels anxious. Denies any recent tremors or seizures. Tetanus within 5 years?: Yes Medication Reconciliation Allergies: Coded Allergies: ketorolac tromethamine (Unverified Allergy, Mild, HEADACHE, 10/23/24) pineapple (Unverified Allergy, Mild, HEADACHE, 10/23/24) Scheduled Acamprosate Calcium (Acamprosate Calcium), 2 TAB PO TID, (Reported) Chlordiazepoxide Hcl (Librium), 25 MG PO TID Gabapentin (Gabapentin ER), 1 TAB PO HS Methadone Hcl (Methadone), 179 MG PO DAILY, (Reported) Prazosin Hcl (Prazosin Hcl), 1 CAP PO HS, (Reported) Discontinued Medications Chlordiazepoxide Hcl (Librium), 1 CAP PO DIRECTED Discontinued Reason: completed med therapy Clonazepam (Clonazepam), 1 TAB PO HS, (Reported) Discontinued Reason: patient no longer taking Past Medical History Past Medical History: Hypertension, COPD, Chronic Back Pain, Extremity Fracture Past Surgical History: orthopedic surgeries Patient History: FH: alcoholism Maternal Grandfather FH: congestive heart failure FATHER Paternal Grandmother Alcohol Use: Alcoholic Drug Use: methamphetamine Lives In: Home Occupation: employed Review of Systems All Other Systems at this time: Reviewed and Negative ROS As stated above in the HPI, otherwise all systems are reviewed and negative. Physical Exam Vital Signs: Temperature: 98.1, Source: Oral, Heart Rate: 67, Respiratory Rate: 17, BP: 128/74, Pulse Oximetry: 98, Weight: 78.640 Oxygen Flow Rate: 0 Physical Exam General: Alert, no apparent distress. Respiratory: Lungs clear, no respiratory distress. Chest: No accessory muscle use. Cardiovascular: Regular rate and rhythm, no murmurs. Gastrointestinal: Soft, nontender, nondistended. Bowels sounds present. Extremities: Normal range of motion, no deformity. Neurologic: Oriented x4. Psychiatric anxious appearing Skin: Normal color, warm and dry. No edema, no ecchymosis. Progress Results/Orders Results/Orders Orders - ASHISH ARTEAGA SEMICONDUCTOR TECHNICIAN Magnesium Sulf-Water 2g/50ml (Magnesium (01/09/25 14:25) Completed Orders - ASHISH ARTEAGA SEMICONDUCTOR TECHNICIAN Folic Acid Inj. (Folic Acid Inj.) (01/09/25 14:25) Thiamine Inj. (Thiamine Inj.) (01/09/25 14:25) Diazepam Inj (Valium Inj) (01/09/25 14:25) Normal Saline 1000ml (0.9% Sodium Chlori (01/09/25 14:25) Medications Received in ER Medications (Trade) Dose Ordered Sig/Dequan Route PRN Reason Start Time Stop Time Status Last Admin Dose Admin (0.9% sodium chloride (NS) 1000ml IV soln) 1,000 ml ONCE ONCE IVB 01/09/25 12:45 01/09/25 12:46 DC 01/09/25 12:45 1,000 ML Magnesium Sulfate 50 ml @ 25 mls/hr ONCE ONCE IV 01/09/25 14:25 01/09/25 16:24 01/09/25 14:35 25 MLS/HR (folic acid inj.) 1 mg ONCE ONCE IV 01/09/25 14:25 01/09/25 14:26 DC 01/09/25 15:04 1 MG (thiamine inj.) 100 mg ONCE ONCE IV 01/09/25 14:25 01/09/25 14:28 DC 01/09/25 14:41 100 MG (Valium inj) 5 mg ONCE ONCE IV 01/09/25 14:25 01/09/25 14:26 DC 01/09/25 14:40 5 MG (0.9% sodium chloride (NS) 1000ml IV soln) 1,000 ml ONCE ONCE IVB 01/09/25 14:25 01/09/25 14:28 DC 01/09/25 14:42 1,000 ML Vital Signs 01/09/25 01/09/25 01/09/25 11:38 11:49 14:07 Temp 98.1 Pulse 77 67 Resp 20 20 17 B/P (MAP) 156/81 128/74 (92) Pulse Ox 100 98 O2 Flow Rate 0 Laboratory Tests Test 01/09/25 13:25 01/09/25 13:32 White Blood Count 6.0 Red Blood Count 4.99 Hemoglobin 15.3 Hematocrit 45.7 Mean Corpuscular Volume 91.6 Mean Corpuscular Hemoglobin 30.6 Mean Corpuscular Hemoglobin Concent 33.4 Red Cell Distribution Width 15.0 H Platelet Count 221 Mean Platelet Volume 7.1 L Neutrophils (%) (Auto) 79.1 H Lymphocytes (%) (Auto) 13.5 L Monocytes (%) (Auto) 6.1 Eosinophils (%) (Auto) 0 Basophils (%) (Auto) 1.3 H Neutrophils # (Auto) 4.8 Lymphocytes # (Auto) 0.8 L Monocytes # (Auto) 0.4 Eosinophils # (Auto) 0.0 Basophils # (Auto) 0.1 CBC Comment Sodium Level 142 Potassium Level 4.3 Chloride Level 102 Carbon Dioxide Level 25.8 Anion Gap 14 Blood Urea Nitrogen 11 Creatinine 0.60 Estimated GFR/1.73 m2 > 90 BUN/Creatinine Ratio 18.3 Glucose Level 89 Calcium Level 7.7 L Magnesium Level 1.7 Total Bilirubin 0.6 Direct Bilirubin 0.2 Aspartate Amino Transf (AST/SGOT) 420 H Alanine Aminotransferase (ALT/SGPT) 340 H Alkaline Phosphatase 217 H Total Protein 5.8 L Albumin 2.8 L Globulin 3.0 Albumin/Globulin Ratio 0.9 L Lipase 20 Chemistry Comments Ethyl Alcohol Level 297 H Urine Specimen Description Cln catch midstream Urine Color Yellow Urine Clarity Clear Urine pH 6.0 Urine Specific [place] >=1.030 Urine Protein 30 H Urine Glucose (UA) Negative Urine Ketones >=80 Urine Occult Blood Small Urine Nitrite Negative Urine Bilirubin Negative Urine Urobilinogen 2.0 H Urine Leukocyte Esterase Negative Urine RBC 0-2 Urine WBC None seen Urine Squamous Epithelial Cells Few Urine Bacteria None seen Urine Mucus Few Urine Culture Indicated Not ind Volume Urine Centrifuged 10 ml Urine Comment Urine Opiates Screen Negative Urine Methadone Screen Positive Urine Fentanyl Screen Negative Urine Barbiturates Screen Negative Urine Phencyclidine Screen Negative Urine Amphetamines Screen Negative Urine Benzodiazepines Screen Positive Urine Cocaine Screen Negative Urine Cannabinoids Screen Negative Drug Screen Comment Medical Decision Making Findings Patient presented with a complaint of acute alcohol withdrawal however based on his ETOH level he may be in the beginning state stages of ETOH withdrawal. Provided magnesium fluid bolus folic acid and thiamine for overall replacement. Also gave him a small dose of Valium to stave off any acute withdrawal. After further observation and date tests along with evaluating for safe discharge I am going to discharge him with Librium to help with alcohol withdrawal Explained my findings to the patient and he agreed with plan of care verbally. Differential Dx:Considerations: Intoxication - ETOH, Intoxication - other drug, Sub. Abuse -continuous, Sub. Abuse-intermittent, Skull fracture, Fracture - other bone, Personality disorder, Closed head injury, Cervical spine injury, Abrasion, Confusion, Hematoma, Laceration, Foreign body, Dehydration, Encephalopathy, Hepatitis, Pancreatitis, Thiamine deficiency, Other Departure Disposition: 01 HOME / SELF CARE / HOMELESS Impression: Primary Impression: Alcoholic intoxication Additional Impression: Alcohol withdrawal syndrome Condition: Stable Discharge Instructions: Alcohol Withdrawal Syndrome, [id number] Referrals: NO PRIMARY CARE PROVIDER (PCP) Prescriptions ONDANSETRON ODT 4mg tablet (ONDANSETRON ODT) 4 Mg Tab.rapdis 1 TAB PO Q6H PRN PRN for nausea/vomiting for 4 Days, #16 TAB 0 Refills Prov: ASHISH ARTEAGA NP 01/09/25 Chlordiazepoxide Hcl (Librium) 25 Mg Capsule 25 MG PO TID for alcohol withdrawl for 5 Days, #15 CAP 0 Refills Prov: ASHISH ARTEAGA NP 01/09/25 Education Educated: Patient Educated regarding: diagnosis Signature Scribe Signature: 56 Attestation: Scribed for Ashish Arteaga Mathematical Sciences Professor by Ashish Mccoy NP . 01/09/25 14:44 ASHISH ARTEAGA NP Jan 09, 2025 14:44
[2025-01-09] MEDS: folic acid 1mg/0.2ml inj IV ONE (15:04)
[2025-01-09] MEDS ORDERED: CHLO25CA10 PO (15:32)
[2025-01-09] MEDS ORDERED: ONDA-243 PO (15:47)
[2025-01-09 16:41] VITALS: BP 130/70; PULSE 69; RESP 16; O2SAT 96
== END 2025-01-09 16:43 | disposition home or self-care (01) ==
LOC: ER 11:27
DX: F10.229 Alcohol dependence with intoxication, unspecified (principal); F10.239 Alcohol dependence with withdrawal, unspecified; I10 Essential (primary) hypertension; J44.9 Chronic obstructive pulmonary disease, unspecified; F15.90 Other stimulant use, unspecified, uncomplicated; Z88.8 Allergy status to other drugs, medicaments and biological substances; Z79.899 Other long term (current) drug therapy; Y90.9 Presence of alcohol in blood, level not specified
CPT/HCPCS: 36415; 80048; 80076; 80305; 81001; 83690; 83735; 85025; 96361; 96365; 96366; 96375; 99284; A4615; G0480; J3360; J3411; J3490; J7030; 80320

== ENCOUNTER 2025-04-06 09:32 | Emergency (ER) | payer MEDICARE, MEDICAID ==
[~2025-04-06] VITALS: Ht 172.7 cm; Wt 83.8 kg
[~2025-04-06 09:32] MED LIST changes: -CLON-570 PO; +ONDA-243 PO
[2025-04-06 09:40] VITALS: TEMP 97.6
[2025-04-06 10:06] LABS: MEAN PLATELET VOLUME 7.1 FL (7.4-10.4); RED CELL DISTRIBUTION WIDTH 15.9 % (11.5-14.5)
[2025-04-06 10:19] LABS: CREATININE 0.67 MG/DL (0.60-1.10); TOTAL CARBON DIOXIDE 22.9 MMOL/L (24-32); eCRCL 123 ML/MIN; eGFR > 90 ML/MIN
--- NOTE | 2025-04-06 10:26 | Physician Documentation ---
History of Present Illness General Chief Complaint: ETOH Withdrawl Stated Complaint: WITHDRAWAL Time Seen by MD: 10:15 Primary Medical Doctor: DR. MEMBRENO History of Present Illness Initial Comments The patient is a 55-year-old male who presents to the emergency room with some nausea and vomiting as well as tremulousness anxiety myalgias over the last 24 hours. The patient states he stopped drinking yesterday. The patient states he is experiencing seeing withdrawal symptoms. The patient states he normally drinks a 5th of hard alcohol daily. The patient denies any seizures. The patient denies any fevers chills nausea or vomiting the patient's symptoms are moderate and persistent. Medication Reconciliation Allergies: Coded Allergies: ketorolac tromethamine (Unverified Allergy, Mild, HEADACHE, 04/06/25) pineapple (Unverified Allergy, Mild, HEADACHE, 04/06/25) Scheduled Acamprosate Calcium (Acamprosate Calcium), 2 TAB PO TID, (Reported) Chlordiazepoxide Hcl (Librium), 25 MG PO TID Gabapentin (Gabapentin ER), 1 TAB PO HS Methadone Hcl (Methadone), 179 MG PO DAILY, (Reported) Prazosin Hcl (Prazosin Hcl), 1 CAP PO HS, (Reported) Scheduled PRN Chlordiazepoxide Hcl (Librium), 25 MG PO UD PRN for for anxiety/agitation ONDANSETRON ODT 4mg tablet (Ondansetron Odt), 1 TAB PO Q6H PRN PRN for nausea/vomiting ONDANSETRON ODT 4mg tablet (Ondansetron Odt), 1 TABLET PO Q6H PRN for nausea/vomiting Past Medical History Past Medical History: Hypertension, COPD, Chronic Back Pain, Extremity Fracture Past Surgical History: orthopedic surgeries Alcohol Use: Alcoholic Drug Use: methamphetamine Lives In: Home Occupation: employed Review of Systems All Other Systems at this time: Reviewed and Negative Physical Exam Physical Exam Vital Signs: Temperature: 97.6, Source: Temporal, Heart Rate: 90, Respiratory Rate: 20, BP: 165/91, Pulse Oximetry: 99, Weight: 83.800 Oxygen Flow Rate: 0 Physical Exam VITALS: Reviewed and as above. GENERAL: Alert, no apparent distress. HEENT: Normocephalic, atraumatic, PERRL, EOMI, dry mucosa, no erythema RESPIRATORY: Lungs clear, normal breath sounds, no respiratory distress. CHEST: No accessory muscle use, no retractions CV: Regular rate, rhythm, no edema, no murmur, No: JVD GI: Soft, non-tender, bowels sounds present, no rebound, guarding, or rigidity BACK: No CVA tenderness, or swelling MUSCULOSKELETAL: No deformities, no edema SKIN: Warm and dry, no rash NEURO: Oriented x4, No motor or sensory deficit, the patient has a baseline tremulousness PSYCH: Anxious slight psychomotor agitation Progress Results/Orders Results/Orders Orders - OHLWATSON RIVERA MD Urinalysis, Cult If Indicated (04/06/25 09:45) Completed Orders - WATSON WHITE MD Cbc/Diff (04/06/25 09:45) BMP (04/06/25 09:45) Lipase (04/06/25 09:45) CMP (04/06/25 09:45) Normal Saline 1000ml (0.9% Sodium Chlori (04/06/25 10:25) Midazolam 5 Mg/Ml 2ml Inj (Versed 5 Mg/M (04/06/25 10:25) Magnesium Sulf-Water 2g/50ml (Magnesium (04/06/25 10:25) Chlordiazepoxide Capsule (Librium Capsul (04/06/25 10:25) Vital Signs 04/06/25 04/06/25 04/06/25 04/06/25 09:40 10:43 10:55 11:33 Temp 97.6 Pulse 90 76 66 Resp 20 13 12 12 B/P (MAP) 165/91 150/91 (110) 121/68 (85) Pulse Ox 99 94 95 O2 Flow Rate 0 0 2.0 04/06/25 12:24 Pulse 69 Resp 12 B/P (MAP) 120/75 (90) Pulse Ox 95 O2 Flow Rate 0 Laboratory Tests Test 04/06/25 09:52 White Blood Count 7.7 Red Blood Count 4.53 L Hemoglobin 13.7 L Hematocrit 41.0 L Mean Corpuscular Volume 90.4 Mean Corpuscular Hemoglobin 30.2 Mean Corpuscular Hemoglobin Concent 33.4 Red Cell Distribution Width 15.9 H Platelet Count 178 Mean Platelet Volume 7.1 L Neutrophils (%) (Auto) 87.1 H Lymphocytes (%) (Auto) 10.0 L Monocytes (%) (Auto) 1.9 L Eosinophils (%) (Auto) 0.2 Basophils (%) (Auto) 0.8 Neutrophils # (Auto) 6.8 Lymphocytes # (Auto) 0.8 L Monocytes # (Auto) 0.1 Eosinophils # (Auto) 0.0 Basophils # (Auto) 0.1 CBC Comment Sodium Level 134 L Potassium Level 3.8 Chloride Level 97 L Carbon Dioxide Level 22.9 L Anion Gap 14 Blood Urea Nitrogen 17 Creatinine 0.67 Estimated GFR/1.73 m2 > 90 BUN/Creatinine Ratio 25.4 H Glucose Level 136 H Calcium Level 7.5 L Total Bilirubin 0.7 Aspartate Amino Transf (AST/SGOT) 161 H Alanine Aminotransferase (ALT/SGPT) 134 H Alkaline Phosphatase 419 H Total Protein 6.8 Albumin 3.2 L Globulin 3.6 Albumin/Globulin Ratio 0.9 L Lipase 25 Chemistry Comments Medical Decision Making Additional information obtaine: old records Findings The patient presented with alcohol withdrawal syndrome the patient was significantly tremulous and uncomfortable he was treated in the emergency room with IV fluids benzodiazepines with improvement of his symptoms. The patient wi ll be discharged with a prescription for Librium for alcohol withdrawal. The patient's prior hospitalizations has been reviewed. The patient's pulse oximetry was interpreted as normal and adequate. And the patient's pvc monitor was interpreted as a sinus rhythm. Differential Diagnosis Alcohol withdrawal, medication overdose, alcohol intoxication, Departure Impression: Primary Impression: Alcohol withdrawal syndrome Qualified Codes: F10.930 - Alcohol use, unspecified with withdrawal, uncomplicated Discharge Instructions: Alcohol Withdrawal Syndrome, [id number] Referrals: NO PRIMARY CARE PROVIDER (PCP) Prescriptions ONDANSETRON ODT 4mg tablet (ONDANSETRON ODT) 4 Mg Tab.rapdis 1 TABLET PO Q6H PRN for nausea/vomiting, #12 TABLET Prov: WATSON WHITE MD 04/06/25 Chlordiazepoxide Hcl (Librium) 25 Mg Capsule 25 MG PO UD PRN for for anxiety/agitation, #32 CAP use 2 tablets by mouth 3 times a day for 2 days then 2 tablets twice a day for 2 days then 1 tablet 3 times a day for 2 days then one tablet twice a day for 2 days then 1 tablet a day for 2 days Prov: WATSON WHITE MD 04/06/25 Signature Scribe Signature: no scribe Attestation: The note accurately reflects work and decisions made by me.Watson White MD 04/07/25 06:35 WATSON WHITE MD Apr 06, 2025 10:26
[2025-04-06] MEDS: normal saline 1000ML IV soln IVB ONE (10:42)
[2025-04-06] MEDS: MIDAZolam 5mg/ml 2ml vial IV ONE (10:55)
[2025-04-06] MEDS: magnesium sulf-water 2g/50mL 50 ML IV ONE (10:57)
[2025-04-06 12:24] VITALS: BP 120/75; PULSE 69; RESP 12; O2SAT 95
[2025-04-06] MEDS ORDERED: CHLO25CA10 PO (12:25)
[2025-04-06] MEDS ORDERED: ONDA-243 PO (12:25)
== END 2025-04-06 12:30 | disposition home or self-care (01) ==
LOC: ER 09:33
DX: F10.930 Alcohol use, unspecified with withdrawal, uncomplicated (principal); F41.9 Anxiety disorder, unspecified; I10 Essential (primary) hypertension; Z88.8 Allergy status to other drugs, medicaments and biological substances
CPT/HCPCS: 36415; 80053; 83690; 85025; 96365; 96375; 99284; A4615; J2250; J7030; 96366

== ENCOUNTER 2025-05-04 12:00 | Emergency (ER) | payer MEDICARE, MEDICAID ==
[~2025-05-04] VITALS: Ht 172.7 cm; Wt 87.6 kg
[2025-05-04 12:05] VITALS: TEMP 98.7
[2025-05-04 12:39] LABS: LEUKOCYTE ESTERASE ,URINE NEGATIVE (Neg); NITRITES, URINE NEGATIVE (Neg); OCCULT BLOOD,URINE SMALL (Neg)
[2025-05-04 12:39] LABS: MEAN PLATELET VOLUME 6.3 FL (7.4-10.4); RED CELL DISTRIBUTION WIDTH 17.5 % (11.5-14.5)
[2025-05-04] MEDS: normal saline 1000ml 1,000 ML IV ONE (12:39)
[2025-05-04 12:49] LABS: UA COLLECTION TYPE URINAL
[2025-05-04 12:50] LABS: MUCUS STRANDS NONE SEEN /LPF (Neg); SQUAMOUS EPITHELIAL CELL,UR FEW /LPF (FEW)
[2025-05-04 12:53] LABS: URINE AMPHETAMINE SCREEN POSITIVE (Neg); URINE BARBITUATE SCREEN NEGATIVE (Neg); URINE BENZODIAZEPINES SCREEN POSITIVE (Neg); URINE CANNABINOID SCREEN POSITIVE (Neg); URINE COCAINE SCREEN NEGATIVE (Neg); URINE METHADONE SCREEN POSITIVE (Neg); URINE OPIATE SCREEN NEGATIVE (Neg); URINE PHENCYCLIDINE SCREEN NEGATIVE (Neg)
[2025-05-04 12:59] LABS: CREATININE 0.75 MG/DL (0.60-1.10); TOTAL CARBON DIOXIDE 32.7 MMOL/L (24-32); eCRCL 110 ML/MIN; eGFR > 90 ML/MIN
--- NOTE | 2025-05-04 15:05 | Physician Documentation ---
History of Present Illness ~ Chief Complaint: ETOH Stated Complaint: BODY PAIN Time Seen by MD: 12:13 Primary Medical Doctor: DR. MEMBRENO Mode of Arrival: EMS HPI 55 year old male found altered by friends at home. History of alcoholism and BIB EMS. Intoxicated on arrival, somnolent but arousable, with no medical complaints including denying chest pain, shortness of breath, N/V/d. Tetanus within 5 years?: No Medication Reconciliation Allergies: Coded Allergies: ketorolac tromethamine (Unverified Allergy, Mild, HEADACHE, 05/04/25) pineapple (Unverified Allergy, Mild, HEADACHE, 05/04/25) Scheduled Acamprosate Calcium (Acamprosate Calcium), 2 TAB PO TID, (Reported) Chlordiazepoxide Hcl (Librium), 25 MG PO TID Gabapentin (Gabapentin ER), 1 TAB PO HS Methadone Hcl (Methadone), 179 MG PO DAILY, (Reported) Prazosin Hcl (Prazosin Hcl), 1 CAP PO HS, (Reported) Scheduled PRN Chlordiazepoxide Hcl (Librium), 25 MG PO UD PRN for for anxiety/agitation ONDANSETRON ODT 4mg tablet (Ondansetron Odt), 1 TAB PO Q6H PRN PRN for nausea/vomiting ONDANSETRON ODT 4mg tablet (Ondansetron Odt), 1 TABLET PO Q6H PRN for nausea/vomiting Past Medical History Past Medical History: Hypertension, COPD, Chronic Back Pain, Extremity Fracture Past Surgical History: orthopedic surgeries Patient History: FH: alcoholism Maternal Grandfather FH: congestive heart failure FATHER Paternal Grandmother Smoking Status: Current every day smoker Alcohol Use: Alcoholic Drug Use: methamphetamine Lives In: Home Occupation: employed Review of Systems All Other Systems at this time: Reviewed and Negative Physical Exam Vital Signs: RN Vital Signs have been reviewed: Yes, Temperature: 98.7, Source: Oral, Heart Rate: 82, Respiratory Rate: 22, BP: 123/79, Pulse Oximetry: 100, Weight: 87.600 Oxygen Flow Rate: 0 Physical Exam Gen: no distress HEENT: EOMI, PERRL, NCAT Pulm: CTAB Cardiac: RRR no m/c/r Abd: deferred MSK: no deformity skin: w/d/i neuro: somnolent but arousable Progress Results/Orders Results/Orders Completed Orders - JOELLE ELDRIDGE MD Normal Saline 1000ml (0.9% Sodium Chlori (05/04/25 12:15) Cbc/Diff (05/04/25 12:28) CMP (05/04/25 12:28) Drug Screen, Urine (05/04/25 12:28) Ua With Microscopic (05/04/25 12:24) Medications Received in ER Medications (Trade) Dose Ordered Sig/Dequan Route PRN Reason Start Time Stop Time Status Last Admin Dose Admin Sodium Chloride 1,000 ml @ 1,000 mls/hr ONCE ONCE IV 05/04/25 12:15 05/04/25 13:14 DC 05/04/25 12:39 1,000 MLS/HR Vital Signs 05/04/25 05/04/25 05/04/25 05/04/25 12:05 12:09 12:36 13:21 Temp 98.7 Pulse 80 79 82 Resp 15 13 22 B/P (MAP) 146/84 131/86 (101) 123/79 (94) Pulse Ox 98 100 100 O2 Flow Rate 0 0 0 Laboratory Tests Test 05/04/25 12:24 05/04/25 12:30 Urine Specimen Description Urinal Urine Color Yellow Urine Clarity Clear Urine pH 6.0 Urine Specific [place] 1.010 Urine Protein Negative Urine Glucose (UA) Negative Urine Ketones Negative Urine Occult Blood Small Urine Nitrite Negative Urine Bilirubin Negative Urine Urobilinogen 0.2 Urine Leukocyte Esterase Negative Urine RBC 10-20 Urine WBC 0-4 Urine Squamous Epithelial Cells Few Urine Bacteria None seen Urine Mucus None seen Volume Urine Centrifuged 10 ml Urine Comment Urine Opiates Screen Negative Urine Methadone Screen Positive Urine Fentanyl Screen Positive H Urine Barbiturates Screen Negative Urine Phencyclidine Screen Negative Urine Amphetamines Screen Positive Urine Benzodiazepines Screen Positive Urine Cocaine Screen Negative Urine Cannabinoids Screen Positive Drug Screen Comment White Blood Count 6.6 Red Blood Count 4.68 L Hemoglobin 14.4 Hematocrit 44.1 Mean Corpuscular Volume 94.1 Mean Corpuscular Hemoglobin 30.7 Mean Corpuscular Hemoglobin Concent 32.6 L Red Cell Distribution Width 17.5 H Platelet Count 239 Mean Platelet Volume 6.3 L Neutrophils (%) (Auto) 72.5 Lymphocytes (%) (Auto) 22.5 Monocytes (%) (Auto) 3.7 Eosinophils (%) (Auto) 0.3 Basophils (%) (Auto) 1.0 Neutrophils # (Auto) 4.8 Lymphocytes # (Auto) 1.5 Monocytes # (Auto) 0.2 Eosinophils # (Auto) 0.0 Basophils # (Auto) 0.1 CBC Comment Sodium Level 147 H Potassium Level 3.7 Chloride Level 111 H Carbon Dioxide Level 32.7 H Anion Gap 3 L Blood Urea Nitrogen 10 Creatinine 0.75 Estimated GFR/1.73 m2 > 90 BUN/Creatinine Ratio 13.3 Glucose Level 108 H Calcium Level 7.5 L Total Bilirubin 0.2 Aspartate Amino Transf (AST/SGOT) 38 H Alanine Aminotransferase (ALT/SGPT) 20 Alkaline Phosphatase 126 H Total Protein 6.3 L Albumin 2.8 L Globulin 3.5 Albumin/Globulin Ratio 0.8 L Chemistry Comments Medical Decision Making Additional information obtaine: N/A Findings 55 year old male with apparent alcohol intoxication. Exam and vitals otherwise unremarkable. Fluids, workup unremarkable, metabolized, will road test and discharge. Differential Dx:Considerations: Intoxication - ETOH, Intoxication - other drug, Sub. Abuse -continuous, Encephalopathy Departure Disposition: HOME / SELF CARE / HOMELESS Impression: Primary Impression: Alcoholic intoxication Condition: Improved Discharge Instructions: Alcohol Intoxication Referrals: NO PRIMARY CARE PROVIDER (PCP) Education Educated: Patient Educated regarding: diagnosis, treatment, prognosis, need for follow up Signature Scribe Signature: . Attestation: JOELLE BROOKS MD May 04, 2025 15:05
[2025-05-04 16:59] VITALS: BP 138/87; PULSE 80; RESP 16; O2SAT 97
== END 2025-05-04 17:05 | disposition home or self-care (01) ==
LOC: ER 12:01
DX: F10.129 Alcohol abuse with intoxication, unspecified (principal); G89.29 Other chronic pain; F17.200 Nicotine dependence, unspecified, uncomplicated; I10 Essential (primary) hypertension; J44.9 Chronic obstructive pulmonary disease, unspecified; F15.90 Other stimulant use, unspecified, uncomplicated; Z88.8 Allergy status to other drugs, medicaments and biological substances; Z79.899 Other long term (current) drug therapy; Y90.9 Presence of alcohol in blood, level not specified; Z91.018 Allergy to other foods; Z98.890 Other specified postprocedural states
CPT/HCPCS: 36415; 80053; 80305; 81001; 85025; 96360; 99285; J7030